=== PATIENT | male | born 1960 | race Caucasian/White ===

== ENCOUNTER → 2016-09-16 | Outpatient (CLI) | payer BC ==
[~2016-09-16] MED LIST: ALBUAER2 INH; CEPH500C PO; CHOL1000 PO; CHOL4POW6 PO; CHOLPOW PO; CLON0.1T12 PO; ETAN50IN3 INJ; HYDC25 PO; HYDR-5688 PO; HYDR50TA3 PO; LISI40TA PO; MELATAB2 PO; MELO15TA10 PO; MOME50SP5; MOME6000; PRLSR20 PO; SPR25 PO; SULF800T23 PO; VNTHFA/IN INH
[2016-09-16 12:28] LABS: BASO % 0.3 %; BASO ABS # 0.03 K/uL (0-0.2); COMPLETE YES; EOS % 0.8 %; HEMATOCRIT 43.2 % (42-52); IG% 0.2 %; LYMPH % 15.3 %; LYMPH ABS # 1.32 K/uL (1.2-3.4); MEAN CELL VOLUME 91.3 fL (80-100); MEAN CORPUSCULAR HEMOGLOBIN 31.5 pg (25-34); MEAN CORPUSCULAR HGB CONC 34.5 g/dl (32-36); MEAN PLATELET VOLUME 11.3 fL (7.4-10.4); MONO % 9.3 %; NEUT % 74.1 %; PLATELET COUNT 224 K/uL (130-400); RED BLOOD COUNT 4.73 M/uL (4.7-6.1); WHITE BLOOD COUNT 8.62 K/uL (4.8-10.8)
[2016-09-16 12:42] LABS: ALT/SGPT 38 U/L (12-78); BLOOD UREA NITROGEN 15 mg/dl (7-18); BUN/CREATININE RATIO 15.5 (10-20); CALCIUM 9.3 mg/dl (8.5-10.1); CARBON DIOXIDE 24 mmol/L (21-32); CHLORIDE 104 mmol/L (98-107); CHOLESTEROL 185 mg/dl (0-200); CREATININE 0.98 mg/dl (0.60-1.40); GLUCOSE 144 mg/dl (70-99); POTASSIUM 4.5 mmol/L (3.5-5.1); SODIUM 138 mmol/L (136-145)
[2016-09-16 12:52] LABS: ALKALINE PHOSPHATASE 70 U/L (45-117); AST/SGOT 14 U/L (15-37); CHOLESTEROL/HDL RATIO 3.6; HDL CHOLESTEROL 51 mg/dl; LDL CHOLESTEROL CALCULATED 102 mg/dl; PROSTATE SPECIFIC ANTIGEN 0.415 ng/ml (0.000-4.000); THYROID STIMULATING HORMONE 0.252 uIu/ml (0.300-4.500); TRIGLYCERIDES 158 mg/dl (0-150); VERY LOW DENSITY LIPOPROT CALC 32 mg/dl
[2016-09-16 13:23] LABS: ESTIMATED AVERAGE GLUCOSE 117 mg/dl; HA1C FLAG Normal (Normal)
== END | disposition home or self-care (01) ==
LOC: C.LABBFT 09:02
PROVIDERS: ATTEND Internal Medicine
DX: R73.01 Impaired fasting glucose (principal); E78.1 Pure hyperglyceridemia; M06.9 Rheumatoid arthritis, unspecified; E55.9 Vitamin D deficiency, unspecified; Z12.5 Encounter for screening for malignant neoplasm of prostate

== ENCOUNTER 2016-10-05 07:22 | Emergency (ER) | payer BC ==
[~2016-10-05] VITALS: Ht 175.3 cm; Wt 128.1 kg
[~2016-10-05 07:22] MED LIST changes: -CEPH500C PO; -CHOLPOW PO; -ETAN50IN3 INJ; -HYDR-5688 PO; -HYDR50TA3 PO; -MOME6000; -SULF800T23 PO; -VNTHFA/IN INH
[2016-10-05 07:24] VITALS: TEMP 36.7; Ht 175.3 cm; Wt 128.1 kg
[2016-10-05] MEDS ORDERED: SODIUM CHLORIDE 0.9% 500ML 500 ML IV STA (07:40)
[2016-10-05] MEDS ORDERED: SODIUM CHLORIDE 0.9% 1000ML 1,000 ML IV STA (07:40)
--- NOTE | 2016-10-05 07:41 | EMERGENCY ROOM VISIT NOTE ---
History Report prepared by Chen: Sandra Liang Under the Supervision of: Dr. Gemma Armstrong M.D. First contact with patient: 07:34 Chief Complaint: INFECTION Stated Complaint: INFECTION History of Present Illness The patient is a 56 year old male who presents to the Emergency Room with complaints of worsening scrotal swelling that began yesterday. The patient states that he was having a bowel movement a few days ago and felt a tearing sensation to the scrotal area. Yesterday, he noticed swelling to the area that has since worsened. He cleaned up the area with baby wipes yesterday but was concerned this morning because he could hardly walk due to the pain. He notes that the swollen area felt very hard. Denies vomiting, diarrhea, or other complaints. He states that he had similar symptoms about 8-10 years ago when he had an abscess. Source of History: patient Onset: yesterday Position: other (scrotum) Quality: other (hard swelling) Timing: worsening Associated Symptoms: No diarrhea, No vomiting Review of Systems See HPI for pertinent positives & negatives. A total of 10 systems reviewed and were otherwise negative. Past Medical & Surgical Medical Problems: (1) HTN (hypertension) (2) Methotrexate adverse reaction (3) Sleep apnea Surgical Problems: (1) History of surgery on arm Family History Diabetes mellitus Hypertension Lung disease Social History Smoking Status: Never Smoker Alcohol Use: none Drug Use: none Marital Status: Housing Status: lives with family Occupation Status: employed Current/Historical Medications Scheduled Albuterol Hfa (Ventolin Hfa), 2-4 PUFFS INH Q6H Cephalexin Monohydrate (Keflex), 500 MG PO QID Cholecalciferol (Vitamin D3), 1,000 INTUNIT PO QAM Cholestyramine (Bulk) (Cholestyramine), 1 PKT PO DAILY Clonidine Hcl (Catapres), 0.1 MG PO BID Etanercept (Enbrel Sureclick), 50 MG INJ WK Hydrochlorothiazide (Hctz), 50 MG PO QAM Lisinopril (Prinivil), 40 MG PO QAM Meloxicam (Mobic), 15 MG PO QAM Omeprazole (Prilosec), 20 MG PO BID Spironolactone (Spironolactone), 25 MG PO QAM Sulfa/Trimethoprim (Bactrim Ds 800MG/160MG), 1 TAB PO BID Scheduled PRN Hydrocodone/Acetaminophen 5MG/325MG ([place] 5MG/325MG), 1 TABLET PO Q6 PRN for Pain Melatonin (Melatonin Maximum Strengt), 5 MG PO HS PRN for Sleep Miscellaneous Medications Mometasone Furoate (Nasal) (Mometasone Furoate) Allergies Coded Allergies: Amlodipine (Verified Allergy, Unknown, UNKNOWN, 10/05/16) Per pt make him feel "like he is floating" and "sick" Methotrexate (Verified Allergy, Unknown, ., 10/05/16) Physical Exam Vital Signs Date Time Temp Pulse Resp B/P Pulse Ox O2 Delivery O2 Flow Rate FiO2 10/05/16 09:25 94 115/80 94 10/05/16 08:47 94 120/69 94 10/05/16 07:24 36.7 114 20 139/80 94 Room Air Physical Exam Vital signs reviewed. General: Well-appearing 56 year old male, obese, in no significant distress. HEENT: No scleral icterus, PERRLA, neck supple. Atraumatic. Cardiovascular: Regular rate and rhythm, no extra sounds. Pulmonary: Clear to auscultation bilaterally, normal work of breathing. Abdomen: Soft, nontender, nondistended, positive bowel sounds. Musculoskeletal: Atraumatic, no peripheral edema. : Liberty sized abscess to the most posterior aspect of the scrotum with active drainage, purulent material, tenderness and induration surrounding the wound. Neurologic: Patient awake alert and oriented x 3 Skin: Warm, dry, no rash Medical Decision & Procedures ER Provider Diagnostic Interpretation: Radiology results as stated below per my review and radiologist interpretation: CT SCAN OF THE ABDOMEN AND PELVIS WITH IV CONTRAST CLINICAL HISTORY: Scrotal abscess. COMPARISON STUDY: Abdominal CT dated 10/31/2015. TECHNIQUE: Following the IV administration of 119 cc of Optiray 320, CT scan of the abdomen and pelvis is performed from the lung bases to the mid thighs. Images are reviewed in the axial, sagittal, and coronal planes. IV contrast was administered without complication. Automated dose control exposure was utilized. CT DOSE: 1704.25 mGy.cm FINDINGS: Lung bases: The heart is mildly enlarged an without pericardial effusion. There is no airspace consolidation or pleural effusion. There are 2 pulmonary nodules at the left lung base measuring up to 4 mm. These are seen on images #35 and #36, and are unchanged from 10/31/2015. Dependent atelectasis is observed. There is a small hiatal hernia. Liver: The contrast-enhanced liver is enlarged, measuring 22.7 cm in length. The liver demonstrates diffusely diminished attenuation consistent with hepatic steatosis. A subcentimeter hypodensity in the left lobe of liver seen on image #65 may represent a cyst but is too small for definitive characterization. There is no intrahepatic biliary ductal dilatation. The hepatic veins and portal veins are patent. Gallbladder: Surgically absent. Spleen: The spleen is enlarged, measuring 15 cm in length. Pancreas: Unremarkable. Adrenal glands: Unremarkable. Kidneys: The contrast enhanced kidneys are normal in size and without hydronephrosis. The kidneys enhance symmetrically. Scattered subcentimeter cortical hypodensities likely represent cysts but are too small for definitive characterization. Abdominal vasculature: The abdominal aorta is normal in course and caliber. Bowel: The small bowel and colon are normal in course and caliber. Submucosal fat deposition is noted throughout the colon. A small duodenal diverticulum is incidentally noted. The appendix is well-visualized and normal. Peritoneum: There is no intraperitoneal free air or abdominal ascites. There is a small fat-containing umbilical hernia. Lymphadenopathy: None. Pelvic viscera: The bladder, prostate, and seminal vesicles are normal as imaged. Calcified phleboliths are noted in the pelvis. Mild scrotal wall thickening and edema is suggested. No subcutaneous emphysema or inflammation is identified in the perineal region. Skeletal structures: No lytic or blastic lesions are seen. There is mild lumbosacral spondylosis. Degenerative change with partial bony fusion is noted in the sacroiliac joints. IMPRESSION: 1. There are no acute infectious or inflammatory findings in the abdomen or pelvis. 2. Mild scrotal wall thickening and edema is suggested. No organized fluid collection is seen to indicate abscess. 3. No subcutaneous emphysema or inflammation is identified in the perineal region. 4. Hepatomegaly and hepatic steatosis. 5. Splenomegaly. 6. Cardiomegaly. 7. Additional findings as above. Electronically signed by: Gordo Cruz M.D. 10/05/2016 8:44 AM Dictated Date/Time: 10/05/2016 8:29 AM Laboratory Results 10/05/16 07:51 Red Blood Count 4.55, Mean Corpuscular Volume 87.3, Mean Corpuscular Hemoglobin 31.2, Mean Corpuscular Hemoglobin Concent 35.8, Mean Platelet Volume 10.2, Neutrophils (%) (Auto) 76.9, Lymphocytes (%) (Auto) 9.4, Monocytes (%) (Auto) 12.2, Eosinophils (%) (Auto) 1.0, Basophils (%) (Auto) 0.2, Neutrophils # (Auto ) 7.85, Lymphocytes # (Auto) 0.96, Monocytes # (Auto) 1.25, Eosinophils # (Auto ) 0.10, Basophils # (Auto) 0.02 10/05/16 07:51 Test 10/05/16 07:51 10/05/16 07:57 White Blood Count 10.21 K/uL (4.8-10.8) Red Blood Count 4.55 M/uL (4.7-6.1) Hemoglobin 14.2 g/dL (14.0-18.0) Hematocrit 39.7 % (42-52) Mean Corpuscular Volume 87.3 fL (80-100) Mean Corpuscular Hemoglobin 31.2 pg (25-34) Mean Corpuscular Hemoglobin Concent 35.8 g/dl (32-36) Platelet Count 152 K/uL (130-400) Mean Platelet Volume 10.2 fL (7.4-10.4) Neutrophils (%) (Auto) 76.9 % Lymphocytes (%) (Auto) 9.4 % Monocytes (%) (Auto) 12.2 % Eosinophils (%) (Auto) 1.0 % Basophils (%) (Auto) 0.2 % Neutrophils # (Auto) 7.85 K/uL (1.4-6.5) Lymphocytes # (Auto) 0.96 K/uL (1.2-3.4) Monocytes # (Auto) 1.25 K/uL (0.11-0.59) Eosinophils # (Auto) 0.10 K/uL (0-0.5) Basophils # (Auto) 0.02 K/uL (0-0.2) RDW Standard Deviation 40.7 fL (36.4-46.3) RDW Coefficient of Variation 12.8 % (11.5-14.5) Immature Granulocyte % (Auto) 0.3 % Immature Granulocyte # (Auto) 0.03 K/uL (0.00-0.02) Est Creatinine Clear Calc Drug Dose 108.9 ml/min Estimated GFR () 98.1 Estimated GFR (Non- 84.6 BUN/Creatinine Ratio 13.3 (10-20) Calcium Level 8.9 mg/dl (8.5-10.1) Total Bilirubin 0.8 mg/dl (0.2-1) Direct Bilirubin 0.1 mg/dl (0-0.2) Aspartate Amino Transf (AST/SGOT) 16 U/L (15-37) Alanine Aminotransferase (ALT/SGPT) 33 U/L (12-78) Alkaline Phosphatase 79 U/L (45-117) Total Protein 7.3 gm/dl (6.4-8.2) Albumin 3.4 gm/dl (3.4-5.0) Bedside Hemoglobin 13.9 g/dl (14.0-18.0) Bedside Hematocrit 41 % (42-52) Bedside Sodium 135 mEq/L (135-144) Bedside Potassium 4.1 mEq/L (3.3-5.0) Bedside Chloride 100 mEq/L (101-112) Bedside Total CO2 21 mEq/l (24-31) Anion Gap 19.0 mmol/L (16-25) Bedside Blood Urea Nitrogen 13 mg/dl (7-18) Bedside Creatinine 0.8 mg/dl (0.6-1.3) Bedside Glucose (other) 154 mg/dl (70-99) Bedside Ionized Calcium (Escobar) 1.09 mmol/l (1.12-1.32) Laboratory results per my review. Medications Administered Medications (Trade) Dose Ordered Sig/Maryam Route Start Time Stop Time Status Last Admin Dose Admin Sodium Chloride 500 ml @ 999 mls/hr Q31M STAT IV 10/05/16 07:40 10/05/16 08:10 DC 10/05/16 07:55 999 MLS/HR Sodium Chloride (Nss 1000ml) 1,000 ml @ 125 mls/hr Q8H STAT IV 10/05/16 07:40 10/05/16 10:48 DC 10/05/16 07:40 125 MLS/HR Ketorolac Tromethamine (Toradol Inj) 30 mg NOW STAT IV 10/05/16 08:37 10/05/16 08:39 DC 10/05/16 08:46 30 MG Trimethoprim/ Sulfamethoxazole (Septra Ds 800/ 160MG Tab) 1 tab NOW STAT PO 10/05/16 08:58 10/05/16 08:59 DC 10/05/16 09:16 1 TAB Cephalexin Monohydrate (Keflex Cap) 500 mg NOW ONCE PO 10/05/16 09:00 10/05/16 09:08 DC 10/05/16 09:17 500 MG ED Course 0736: The patient was evaluated in room A2. A complete history and physical examination was performed. 0740: Ordered NSS 1000 ml @ 125 mls/hr IV, NSS 500 ml @ 999 mls/hr IV. 0837: Ordered Toradol Inj 30 mg IV, [place] 7.5/325 1 tab PO. 0858: Ordered Trimethoprim/Sulfamethoxazole 1 tab PO, Keflex Cap 500 mg PO. 0931: Upon reevaluation, the patient appeared to have improvement of his symptoms. I discussed findings with the patient. He verbalized agreement of the treatment plan. The patient was discharged home. Medical Decision Differential includes scrotal abscess, cellulitis, Светлана's gangrene, folliculitis, yeast dermatitis, perirectal abscess, rectal fissure. This patient was evaluated and appeared to be in no significant distress. Physical examination reveals a small open wound on the posterior aspect of the scrotum with purulent material draining. There is indurated tissue around this area. The patient is obese. A CT scan was performed to rule out a deeper abscess or a Светлана's gangrene. This study was significant only for a cellulitis. I suspect much of the abscess has drained. Patient was placed on Keflex and Bactrim 7 days. He was discharged follow-up with his primary care physician this week. He will return to the ER for worsening of symptoms or any medical concerns. Impression Primary Impression: Cellulitis of scrotum Additional Impression: Abscess of scrotal wall Scribe Attestation The scribe's documentation has been prepared under my direction and personally reviewed by me in its entirety. I confirm that the note above accurately reflects all work, treatment, procedures, and medical decision making performed by me. Departure Information Dispostion Home / Self-Care Prescriptions Hydrocodone/Acetaminophen 5MG/325MG ([place] 5MG/325MG) Tab 1 TABLET PO Q6 Y for Pain, #14 TAB Prov: Gemma Armstrong M.D. 3 Cephalexin Monohydrate (Keflex) 500 Mg Cap 500 MG PO QID, #28 CAP Prov: Gemma Armstrong M.D. 10/05/16 Sulfa/Trimethoprim (Bactrim Ds 800MG/160MG) Tab 1 TAB PO BID, #14 TAB Prov: Gemma Armstrong M.D. 10/05/16 Referrals Ken Briceno M.D. (PCP) Patient Instructions [facility] Additional Instructions Diagnosis: Cellulitis of the scrotum, abscess Bactrim DS one tablet twice daily for 7 days. Keflex 500 mg 4 times daily for 7 days. Follow-up with your primary care physician this week for reevaluation. [place] one to 2 tabs every 6 hours as needed for significant pain. Warm soaks and sitz baths to keep the area clean. Wear a clean pad for drainage. Return to the emergency department for worsening of symptoms or any medical concerns. Problem Qualifiers
[2016-10-05 08:10] LABS: ISTAT CREATININE 0.8 mg/dl (0.6-1.3); ISTAT HEMOGLOBIN 13.9 g/dl (14.0-18.0); ISTAT IONIZED CALCIUM 1.09 mmol/l (1.12-1.32)
[2016-10-05] MEDS ORDERED: VNTHFA/IN INH (08:10)
[2016-10-05] MEDS ORDERED: MOME6000 (08:10)
[2016-10-05] MEDS ORDERED: ETAN50IN3 INJ (08:10)
[2016-10-05] MEDS ORDERED: HYDR50TA3 PO (08:10)
[2016-10-05] MEDS ORDERED: CHOLPOW PO (08:10)
[2016-10-05 08:12] LABS: BASO % 0.2 %; BASO ABS # 0.02 K/uL (0-0.2); COMPLETE YES; HEMATOCRIT 39.7 % (42-52); IG% 0.3 %; LYMPH % 9.4 %; LYMPH ABS # 0.96 K/uL (1.2-3.4); MEAN CELL VOLUME 87.3 fL (80-100); MEAN CORPUSCULAR HEMOGLOBIN 31.2 pg (25-34); MEAN CORPUSCULAR HGB CONC 35.8 g/dl (32-36); MEAN PLATELET VOLUME 10.2 fL (7.4-10.4); MONO % 12.2 %; NEUT % 76.9 %; PLATELET COUNT 152 K/uL (130-400); RED BLOOD COUNT 4.55 M/uL (4.7-6.1); WHITE BLOOD COUNT 10.21 K/uL (4.8-10.8)
[2016-10-05] MEDS ORDERED: OPTIRAY 320 IV PRN (08:15)
[2016-10-05 08:30] LABS: BUN/CREATININE RATIO 13.3 (10-20); CALCIUM 8.9 mg/dl (8.5-10.1); CREATININE 0.98 mg/dl (0.60-1.40)
[2016-10-05] MEDS ORDERED: HYDROCODONE/ACETAMINOPHEN 7.5/325MG TAB PO STA (08:37)
[2016-10-05] MEDS ORDERED: KETOROLAC TROMETHAMINE 30 MG/ML VIAL IV STA (08:37)
--- NOTE | 2016-10-05 08:46 | DIAGNOSTIC IMAGING REPORT ---
CT SCAN OF THE ABDOMEN AND PELVIS WITH IV CONTRAST CLINICAL HISTORY: Scrotal abscess. COMPARISON STUDY: Abdominal CT dated 10/31/2015. TECHNIQUE: Following the IV administration of 119 cc of Optiray 320, CT scan of the abdomen and pelvis is performed from the lung bases to the mid thighs. Images are reviewed in the axial, sagittal, and coronal planes. IV contrast was administered without complication. Automated dose control exposure was utilized. CT DOSE: 1704.25 mGy.cm FINDINGS: Lung bases: The heart is mildly enlarged an without pericardial effusion. There is no airspace consolidation or pleural effusion. There are 2 pulmonary nodules at the left lung base measuring up to 4 mm. These are seen on images #35 and #36, and are unchanged from 10/31/2015. Dependent atelectasis is observed. There is a small hiatal hernia. Liver: The contrast-enhanced liver is enlarged, measuring 22.7 cm in length. The liver demonstrates diffusely diminished attenuation consistent with hepatic steatosis. A subcentimeter hypodensity in the left lobe of liver seen on image #65 may represent a cyst but is too small for definitive characterization. There is no intrahepatic biliary ductal dilatation. The hepatic veins and portal veins are patent. Gallbladder: Surgically absent. Spleen: The spleen is enlarged, measuring 15 cm in length. Pancreas: Unremarkable. Adrenal glands: Unremarkable. Kidneys: The contrast enhanced kidneys are normal in size and without hydronephrosis. The kidneys enhance symmetrically. Scattered subcentimeter cortical hypodensities likely represent cysts but are too small for definitive characterization. Abdominal vasculature: The abdominal aorta is normal in course and caliber. Bowel: The small bowel and colon are normal in course and caliber. Submucosal fat deposition is noted throughout the colon. A small duodenal diverticulum is incidentally noted. The appendix is well-visualized and normal. Peritoneum: There is no intraperitoneal free air or abdominal ascites. There is a small fat-containing umbilical hernia. Lymphadenopathy: None. Pelvic viscera: The bladder, prostate, and seminal vesicles are normal as imaged. Calcified phleboliths are noted in the pelvis. Mild scrotal wall thickening and edema is suggested. No subcutaneous emphysema or inflammation is identified in the perineal region. Skeletal structures: No lytic or blastic lesions are seen. There is mild lumbosacral spondylosis. Degenerative change with partial bony fusion is noted in the sacroiliac joints. IMPRESSION: 1. There are no acute infectious or inflammatory findings in the abdomen or pelvis. 2. Mild scrotal wall thickening and edema is suggested. No organized fluid collection is seen to indicate abscess. 3. No subcutaneous emphysema or inflammation is identified in the perineal region. 4. Hepatomegaly and hepatic steatosis. 5. Splenomegaly. 6. Cardiomegaly. 7. Additional findings as above. Electronically signed by: Gordo Cruz M.D. 10/05/2016 8:44 AM Dictated Date/Time: 10/05/2016 8:29 AM
[2016-10-05] MEDS ORDERED: SULFAMETHOXAZOLE/TRIMETHOPRIM DS 800/160MG TAB PO STA (08:58)
[2016-10-05] MEDS ORDERED: CEPHALEXIN MONOHYDRATE 250 MG CAP PO ONE (09:00)
[2016-10-05] MEDS ORDERED: HYDR-5688 PO (09:07)
[2016-10-05] MEDS ORDERED: SULF800T23 PO (09:07)
[2016-10-05] MEDS ORDERED: CEPH500C PO (09:07)
[2016-10-05 09:25] VITALS: BP 115/80; PULSE 94; O2SAT 94
== END 2016-10-05 09:26 | disposition home or self-care (01) ==
LOC: C.EDB 07:23 → C.EDA 09:26
DX: N49.2 Inflammatory disorders of scrotum (principal); I10 Essential (primary) hypertension; E66.9 Obesity, unspecified; Z79.899 Other long term (current) drug therapy; Z68.41 Body mass index [BMI] 40.0-44.9, adult; Z83.3 Family history of diabetes mellitus; Z82.49 Family history of ischemic heart disease and other diseases of the circulatory system

== ENCOUNTER → 2017-05-29 | Outpatient (CLI) | payer OTHER ==
[~2017-05-29] MED LIST changes: -ALBUAER2 INH; -CHOL4POW6 PO; +CHOLPOW PO; +ETAN50IN3 INJ; -HYDC25 PO; +HYDR50TA3 PO; -MOME50SP5; +MOME6000; +VNTHFA/IN INH
== END | disposition home or self-care (01) ==
LOC: C.LAB 19:01
DX: Z02.83 Encounter for blood-alcohol and blood-drug test (principal)

== ENCOUNTER 2018-10-01 17:51 | Inpatient (IN) ==
[2018-10-01] MEDS ORDERED: MoRPHine SULFATE 10 MG/ML CARP/VIAL IV STA (18:37)
[2018-10-01] MEDS ORDERED: SODIUM CHLORIDE 0.9% 1000ML 1,000 ML IV ONE (18:37)
[2018-10-01] MEDS ORDERED: ONDANSETRON INJ 2 MG/ML 2 ML VIAL IV STA (18:37)
--- NOTE | 2018-10-01 19:13 | Emergency Department Note ---
ED Provider Note CHIEF COMPLAINT: Infection of the scrotum HISTORY OF PRESENT ILLNESS: This 58-year-old male patient presents to the emergency department, ambulatory, 1 day after they noticed a hard, red, tender area in the scrotum and perineum. It is slowly getting larger, more painful and tender. The patient does report a history of swelling and abscess in this area as well. He states he has had it incised and drained in the past. The patient does report subjective fever, chills, and loss of appetite. There has been no drainage from the area. There was no injury to the area preceding the infection, but the patient states he had an MRI with contrast of his arm and developed diarrhea afterward, and suspects the diarrhea may have caused the abscess. They rate the pain as sharp and 9/10. Tetanus shot is up to date. They have tried no compresses, soaks, or medication. The patient is not diabetic. REVIEW OF SYSTEMS: A 10 system review of systems was performed with positives and pertinent negatives listed in the history of present illness. All other systems were reviewed and are negative. ALLERGIES: Amlodipine, methotrexate PHYSICAL EXAM: Vital Signs: Reviewed Nurse's notes, vital signs stable. GENERAL : This is a 58-year-old obese white male, no acute distress, non toxic in appearance, well-developed well-nourished. SKIN: There is an erythematous indurated area in the perineum and extending into the scrotum which measures about 4 cm in diameter. It is fluctuant but there is no pointing or drainage. There is a zone of inflammation around it but no lymphangitis. Capillary refill less than 2 seconds. MUSCULOSKELETAL: There is no limitation of the range of motion of the lower extremities. HEART: Regular rate and rhythm without murmurs, gallops, rubs. LUNGS: CTA bilaterally without wheezes, rhonchi , rales. ABDOMEN: Positive bowel sounds in all 4 quadrants. Normal tympanic percussion. Soft, nontender to palpation. No masses, guarding, or tenderness noted. RADIOLOGY: CT SCAN OF THE PELVIS WITH IV CONTRAST CLINICAL HISTORY: Scrotal/perineal edema and cellulitis. COMPARISON STUDY: Pelvic CT dated 10/05/2016. TECHNIQUE: Following the IV administration of 95 cc of Optiray 220, CT scan of the pelvis is performed from the pelvic inlet to the proximal femora. Images are reviewed in the axial, sagittal, and coronal planes. IV contrast was administered without complication. A dose lowering technique was utilized adhering to the principles of ALARA. CT DOSE: 1135.64 mGycm FINDINGS: The bladder, prostate, and seminal vesicles are normal in appearance. The testes are normal as imaged. There is scrotal wall thickening and edema, greatest posteriorly on the left. There is a thick walled and peripherally enhancing fluid collection identified within the posterior wall of the scrotum end adjacent perineal soft tissues, best seen on image #294. This measures 4.6 x 4.4 x 1.9 cm as seen on axial image #290. The appearance is typical for abscess. The visualized loops of small bowel and colon are normal in caliber. A normal appendix is identified. The perianal soft tissues are normal as imaged. There is no free fluid in the pelvis. No pelvic sidewall or inguinal adenopathy is seen. The bony pelvis appears intact. No lytic or blastic lesion is seen. Degenerative change and partial fusion is noted in the sacroiliac joints. The regional musculature is normal and symmetric. A surgical clip versus metallic foreign body is present within the right anterior upper thigh on image #296. IMPRESSION: There is evidence of cellulitis and abscess involving the posterior scrotal wall and adjacent perineum as detailed above. Electronically signed by: Gordo Cruz M.D. 10/01/2018 8:46 PM EMERGENCY DEPARTMENT COURSE: I examined the patient. The abscess is located within the scrotum and extends into the perineum. There is no pointing or drainage at this time. Because of the location of the abscess and concern for Светлана's gangrene, we did elect to perform CT imaging and labs. Labs to show a leukocytosis of 13,000. No significant anemia or thrombocytopenia. The patient was hypokalemic at 2.8. Otherwise, electrolytes, renal and hepatic function without significant abnormalities. Did order a magnesium with note of hypokalemia. CT scan performed reviewed by myself and radiologist as above. There was evidence of a 4.6 x 4.1 x 1.9 cm abscess located within the scrotum and extending to the perineum. Initiated IV Clindamycin and Zosyn. The patient' s pain was managed in the ED with morphine. Because of the location of the abscess, the patient subjective fever and chills , as well as leukocytosis, I did contact the general surgeon. I spoke with Dr. Vargas, who recommends the patient be evaluated by urology, as the majority of the abscess is within the scrotum. I spoke with Dr. Hull from urology. He did agree to evaluate the patient and drain the abscess, however, requests that the patient be admitted for antibiotics overnight with some time in order to see if the abscess develops a head or starts to drain, with either bedside I&D vs. surgical I&D tomorrow afternoon. I discussed the case and recommendation by urology for admission with Dr. Edge. He did agree to see and evaluate the patient. I attest that I have personally reviewed the patient's current medication list. Patient was found to have normal blood pressure on screening and does not require follow-up. Differential diagnosis includes cellulitis, Светлана's gangrene, abscess, DVT, superficial thrombus, septic joint, necrotizing fasciitis, burn, dermatitis, impetigo, erythema multiforme, bite, osteomyelitis, Russo-Gordy Syndrome, gangrene, malignancy, and others DIAGNOSIS: scrotal abscess The chart was completed utilizing [employer] Speech voice recognition software. Grammatical errors, random word insertions, pronoun errors, and incomplete sentences are an occasional consequence of this system due to software limitations, ambient noise, and hardware issues. Any formal questions or concerns about the content, text, or information contained within the body of this dictation should be directly addressed to the provider for clarification. Impression & Plan Abscess of scrotum, Acute hypokalemia Past Med/Surg History Medical History GERD (gastroesophageal reflux disease) Rheumatoid arthritis Psoriatic arthritis Hyperlipidemia HTN (hypertension) (Chronic) Sleep apnea (Chronic) Social History Feels Safe at Home: Yes Smoking Status: Never smoker Results & Data Vital Signs Vital Signs - 24 hr 10/01/18 18:21 10/01/18 19:05 10/01/18 20:44 Temperature 37.3 C Temperature Source Oral Sepsis Recent Fever Within 48 Hours No Sepsis New/Unexplained Change in Mental Status No Sepsis Action Taken by Nursing No Action Required Pulse Rate 108 H Pulse Rate [Finger] 94 H Respiratory Rate 20 18 Respiratory Effort / Characteristics Non-Labored Spontaneous Respiratory Depth Normal Blood Pressure 173/99 H Blood Pressure [Right Arm] 118/76 Blood Pressure Mean 123 Blood Pressure Mean [Right Arm] 90 Pulse Oximetry 95 94 Oxygen Delivery Method Room Air Room Air Room Air Laboratory Data Result diagrams: 10/01/18 19:05 10/01/18 19:05 Lab Results 10/01/18 10/01/18 10/01/18 Range/Units 19:05 19:05 19:05 WBC 13.53 H (4.8-10.8) K/uL RBC 5.08 (4.7-6.1) M/uL Hgb 15.6 (14.0-18.0) g/dL POC Hgb (14.0-18.0) g/dl Hct 44.4 (42-52) % POC Hct (42-52) % MCV 87.4 (80-100) fL MCH 30.7 (25-34) pg MCHC 35.1 (32-36) g/dL RDW Std Deviation 44.6 (36.4-46.3) fL RDW Coeff of Elvia 13.9 (11.5-14.5) % Plt Count 168 (130-400) K/uL MPV 10.7 H (7.4-10.4) fL Immature Gran % (Auto) 0.1 % Neut % (Auto) 73.9 % Lymph % (Auto) 11.2 % [place] % (Auto) 13.3 % Eos % (Auto) 1.2 % Baso % (Auto) 0.3 % Immature Gran # (Auto) 0.02 (0.00-0.02) K/uL Neut # (Auto) 9.99 H (1.4-6.5) K/uL Lymph # (Auto) 1.52 (1.2-3.4) K/uL [place] # (Auto) 1.80 H (0.11-0.59) K/uL Eos # (Auto) 0.16 (0-0.5) K/uL Baso # (Auto) 0.04 (0-0.2) K/uL PT 10.8 (9.0-12.0) Seconds INR 1.1 (0.9-1.1) APTT 26.1 (21.0-31.0) Seconds PTT Ratio 1.0 POC Sodium (135-144) mEq/L Sodium 135 L (136-145) mmol/L POC Potassium (3.3-5.0) mEq/L Potassium 2.8 L (3.5-5.1) mmol/L POC Chloride (101-112) mEq/L Chloride 97 L (98-107) mmol/L Carbon Dioxide 31 (21-32) mmol/L POC Total CO2 (24-31) mEq/l Anion Gap 7.0 (3-11) POC Anion Gap (16-25) mmol/L POC BUN (7-18) mg/dl BUN 18 (7-18) mg/dl Creatinine 0.96 (0.6-1.4) mg/dl POC Creatinine (0.6-1.3) mg/dl Est Cr Clr Drug Dosing 104.3 ml/min Est GFR ( Amer) 99.2 Est GFR (Non-Af Amer) 85.6 BUN/Creatinine Ratio 18.5 (10-20) Glucose 106 H (70-99) mg/dl POC Glucose (other) (70-99) mg/dl Lactate (0.4-2.0) mmol/L Calcium 8.8 (8.5-10.1) mg/dl POC Ioniz Calcium Escobar (1.12-1.32) mmol/l Total Bilirubin 0.7 (0.2-1) mg/dl AST 14 L (15-37) U/L ALT 30 (12-78) U/L Alkaline Phosphatase 82 (45-117) U/L Total Protein 8.3 H (6.4-8.2) gm/dl Albumin 3.7 (3.4-5.0) gm/dl Globulin 4.6 H (2.5-4.0) gm/dl Albumin/Globulin Ratio 0.8 L (0.9-2) Urine Color Urine Appearance (Clear) Urine pH (4.5-7.5) Ur Specific [place] (1.000-1.030) Urine Protein (Negative) Urine Glucose (UA) (Negative) Urine Ketones (Negative) Urine Blood (Negative) Urine Nitrite (Negative) Urine Bilirubin (Negative) Urine Urobilinogen (Negative) Ur Leukocyte Esterase (Negative) 10/01/18 10/01/18 10/01/18 Range/Units 19:08 19:16 20:30 WBC (4.8-10.8) K/uL RBC (4.7-6.1) M/uL Hgb (14.0-18.0) g/dL POC Hgb 16.3 (14.0-18.0) g/dl Hct (42-52) % POC Hct 48 (42-52) % MCV (80-100) fL MCH (25-34) pg MCHC (32-36) g/dL RDW Std Deviation (36.4-46.3) fL RDW Coeff of Elvia (11.5-14.5) % Plt Count (130-400) K/uL MPV (7.4-10.4) fL Immature Gran % (Auto) % Neut % (Auto) % Lymph % (Auto) % [place] % (Auto) % Eos % (Auto) % Baso % (Auto) % Immature Gran # (Auto) (0.00-0.02) K/uL Neut # (Auto) (1.4-6.5) K/uL Lymph # (Auto) (1.2-3.4) K/uL [place] # (Auto) (0.11-0.59) K/uL Eos # (Auto) (0-0.5) K/uL Baso # (Auto) (0-0.2) K/uL PT (9.0-12.0) Seconds INR (0.9-1.1) APTT (21.0-31.0) Seconds PTT Ratio POC Sodium 138 (135-144) mEq/L Sodium (136-145) mmol/L POC Potassium 2.8 L (3.3-5.0) mEq/L Potassium (3.5-5.1) mmol/L POC Chloride 95 L (101-112) mEq/L Chloride (98-107) mmol/L Carbon Dioxide (21-32) mmol/L POC Total CO2 31 (24-31) mEq/l Anion Gap (3-11) POC Anion Gap 16.0 (16-25) mmol/L POC BUN 16 (7-18) mg/dl BUN (7-18) mg/dl Creatinine (0.6-1.4) mg/dl POC Creatinine 0.9 (0.6-1.3) mg/dl Est Cr Clr Drug Dosing ml/min Est GFR ( Amer) Est GFR (Non-Af Amer) BUN/Creatinine Ratio (10-20) Glucose (70-99) mg/dl POC Glucose (other) 108 H (70-99) mg/dl Lactate 1.7 (0.4-2.0) mmol/L Calcium (8.5-10.1) mg/dl POC Ioniz Calcium [place] 1.03 L (1.12-1.32) mmol/l Total Bilirubin (0.2-1) mg/dl AST (15-37) U/L ALT (12-78) U/L Alkaline Phosphatase (45-117) U/L Total Protein (6.4-8.2) gm/dl Albumin (3.4-5.0) gm/dl Globulin (2.5-4.0) gm/dl Albumin/Globulin Ratio (0.9-2) Urine Color Yellow Urine Appearance Clear (Clear) Urine pH 5.0 (4.5-7.5) Ur Specific [place] > 1.045 H (1.000-1.030) Urine Protein Negative (Negative) Urine Glucose (UA) Negative (Negative) Urine Ketones Negative (Negative) Urine Blood Negative (Negative) Urine Nitrite Negative (Negative) Urine Bilirubin Negative (Negative) Urine Urobilinogen Negative (Negative) Ur Leukocyte Esterase Negative (Negative) Administered Medications Piperacillin Sod/Tazobactam Sod (Zosyn) 4.5 gm in 120 mls @ 240 mls/hr IV NOW ONE Stop: 10/01/18 21:27 Last Admin: 10/01/18 21:10 Dose: 240 mls/hr Ioversol (Optiray 320 100ml) 94 ml IV ONCE PRN PRN Reason: Interaction Checking Stop: 10/05/18 20:13 Last Admin: 10/01/18 20:15 Dose: 94 ml Discontinued Medications Sodium Chloride (Nss 1000ml) 1,000 mls @ 999 mls/hr IV .Q1H1M ONE Stop: 10/01/18 19:37 Last Infusion: 10/01/18 20:30 Dose: 0 mls/hr Admin: 10/01/18 19:21 Dose: 999 mls/hr Morphine Sulfate (Morphine Sulfate) 8 mg IV NOW STA Stop: 10/01/18 18:38 Last Admin: 10/01/18 19:22 Dose: 8 mg Morphine Sulfate (Morphine Sulfate) 4 mg IV NOW STA Stop: 10/01/18 20:59 Last Admin: 10/01/18 21:10 Dose: 4 mg Ondansetron HCl (Zofran) 4 mg IV NOW STA Stop: 10/01/18 18:38 Last Admin: 10/01/18 19:21 Dose: 4 mg Discharge Plan Visit Data Chief Complaint: Referred by Doctor Stated Complaint: BOIL ON BUTTOX ED Provider: Gustavo Casillas ED Midlevel Provider: Wendy Victoria Discharge Problem: Abscess of scrotum, Acute hypokalemia Patient Disposition: Admitted As Inpatient Condition: Good Forms Stand Alone Forms: [email or web address] Prescriptions Prescriptions: No Action Lisinopril (Prinivil) 40 MG tablet 40 mg PO QAM Qty: 0 RF: 0 OMEPRAZOLE (PRILOSEC) 20 MG CONTR REL CAP 20 mg PO BID Qty: 0 RF: 0 CHOLECALCIFEROL (VITAMIN D3) 1,000 UNIT tablet 1,000 intunit PO QAM Qty: 0 RF: 0 MELATONIN (MELATONIN MAXIMUM STRENGT) 5 MG tablet 5 mg PO HS PRN (Reason: Sleep) Qty: 0 RF: 0 CLONIDINE HCL (CATAPRES) 0.1 MG tablet 0.1 mg PO BID 0 Days Qty: 0 RF: 3 Spironolactone 25 MG tablet 25 mg PO QAM Qty: 0 RF: 0 MELOXICAM (MOBIC) 15 MG tablet 15 mg PO QAM Qty: 0 RF: 0 ALBUTEROL HFA (VENTOLIN HFA) 200 PUFFS/18,000 MCG AEROSOL,SOLN 2 - 4 puff Inhalation Q6H Qty: 1 RF: 0 CHOLESTYRAMINE (BULK) (CHOLESTYRAMINE) 1 POW POW 1 pkg PO DAILY Qty: 0 RF: 0 ETANERCEPT (ENBREL SURECLICK) 50 MG/ML INJECTION 50 mg INJ WK Qty: 0 RF: 0 HYDROCHLOROTHIAZIDE (HCTZ) 50 MG tablet 50 mg PO QAM Qty: 0 RF: 0 Mometasone Furoate (Nasal) (Mometasone Furoate) 50 MCG/ACT SPR Qty: 0 RF: 0 Referrals Referrals: Ken Briceno III, MD [Primary Care Provider] -
[2018-10-01 19:18] LABS: Basophils # (auto) 0.04 K/uL (0-0.2); Basophils % (auto) 0.3 %; Eosinophils # (auto) 0.16 K/uL (0-0.5); Eosinophils % (auto) 1.2 %; Hematocrit (blood only) 44.4 % (42-52); Hemoglobin 15.6 g/dL (14.0-18.0); Immature Granulocytes # (auto) 0.02 K/uL (0.00-0.02); Immature Granulocytes % (auto) 0.1 %; Lymphocytes # (auto) 1.52 K/uL (1.2-3.4); Lymphocytes % (auto) 11.2 %; Mean Corpuscular Hgb Conc 35.1 g/dL (32-36); Mean Corpuscular Volume 87.4 fL (80-100); Mean Platelet Volume 10.7 fL (7.4-10.4); Monocytes % (auto) 13.3 %; Neutrophils # (auto) 9.99 K/uL (1.4-6.5); Neutrophils % (auto) 73.9 %; Platelet Count 168 K/uL (130-400); RDW Coefficient of Variation 13.9 % (11.5-14.5); RDW Standard Deviation 44.6 fL (36.4-46.3); Red Blood Count 5.08 M/uL (4.7-6.1); White Blood Count 13.53 K/uL (4.8-10.8)
[2018-10-01 19:24] LABS: iSTAT Creatinine 0.9 mg/dl (0.6-1.3); iSTAT Hemoglobin 16.3 g/dl (14.0-18.0); iSTAT Ionized Calcium 1.03 mmol/l (1.12-1.32); iSTAT Potassium 2.8 mEq/L (3.3-5.0)
[2018-10-01 19:38] LABS: Albumin Level 3.7 gm/dl (3.4-5.0); BUN Creatinine Ratio 18.5 (10-20); Calcium 8.8 mg/dl (8.5-10.1); Creatinine Clr Calc Pharmacy 104.3 ml/min; Est GFR (African American) 99.2; Est GFR (Non-African American) 85.6; Potassium 2.8 mmol/L (3.5-5.1)
[2018-10-01 19:40] LABS: Albumin Globulin Ratio 0.8 (0.9-2); Bilirubin,Total 0.7 mg/dl (0.2-1); Globulin 4.6 gm/dl (2.5-4.0); Total Protein 8.3 gm/dl (6.4-8.2)
[2018-10-01 19:43] LABS: INR 1.1 (0.9-1.1); Partial Thromboplastin Time 26.1 Seconds (21.0-31.0); Prothrombin Time 10.8 Seconds (9.0-12.0)
[2018-10-01] MEDS ORDERED: IOVERSOL 100ml IV PRN (20:14)
[2018-10-01 20:40] LABS: Appearance Urine Clear (Clear); Bilirubin Urine Negative (Negative); Blood Urine Negative (Negative); Color Urine Yellow; Glucose Urine UA Negative (Negative); Ketones Urine Negative (Negative); Leukocyte Esterase Urine Negative (Negative); Nitrite Urine Negative (Negative); Protein Urine Negative (Negative); Specific Gravity Urine > 1.045 (1.000-1.030); Urobilinogen Urine Negative (Negative)
--- NOTE | 2018-10-01 20:48 | CT Scan Report ---
CT SCAN OF THE PELVIS WITH IV CONTRAST CLINICAL HISTORY: Scrotal/perineal edema and cellulitis. COMPARISON STUDY: Pelvic CT dated 10/05/2016. TECHNIQUE: Following the IV administration of 95 cc of Optiray 220, CT scan of the pelvis is perform ed from the pelvic inlet to the proximal femora. Images are reviewed in the axial, sagittal, and prema nal planes. IV contrast was administered without complication. A dose lowering technique was utilize d adhering to the principles of ALARA. CT DOSE: 1135.64 mGycm FINDINGS: The bladder, prostate, and seminal vesicles are normal in appearance. The testes are normal as imaged . There is scrotal wall thickening and edema, greatest posteriorly on the left. There is a thick wall ed and peripherally enhancing fluid collection identified within the posterior wall of the scrotum en d adjacent perineal soft tissues, best seen on image #294. This measures 4.6 x 4.4 x 1.9 cm as seen o n axial image #290. The appearance is typical for abscess. The visualized loops of small bowel and colon are normal in caliber. A normal appendix is identified. The perianal soft tissues are normal as imaged. There is no free fluid in the pelvis. No pelvic side wall or inguinal adenopathy is seen. The bony pelvis appears intact. No lytic or blastic lesion is seen. Degenerative change and partial f usion is noted in the sacroiliac joints. The regional musculature is normal and symmetric. A surgical clip versus metallic foreign body is present within the right anterior upper thigh on image #296. IMPRESSION: There is evidence of cellulitis and abscess involving the posterior scrotal wall and adj acent perineum as detailed above. Electronically signed by: Gordo Cruz M.D. 10/01/2018 8:46 PM
[2018-10-01] MEDS ORDERED: PIPERACILLIN/TAZOBACTAM 4.5 GM/120 ML BAG IV ONE (20:58)
[2018-10-01] MEDS ORDERED: PIPERACILL/TAZOBAC CONSULT ACTIVE PRN ×2 (20:58→22:56)
[2018-10-01] MEDS ORDERED: MoRPHine SULFATE 4 MG/ML 1 ML CARP\\VIAL IV STA (20:58)
[2018-10-01] MEDS ORDERED: CLINDAMYCIN 600 MG/54 ML BAG IV ONE (20:58)
[2018-10-01] MEDS ORDERED: MoRPHine SULFATE 4 MG/ML 1 ML CARP\\VIAL IV PRN (21:37)
[2018-10-01 21:47] LABS: Magnesium 1.7 mg/dl (1.8-2.4)
--- NOTE | 2018-10-01 22:18 | History & Physical Report ---
Date of Service October 01, 2018 Assessment & Plan (1) Abscess of scrotum: 58 y/o M Hx HTN, HLD, LINO, GERD, PUD, RA, history of cellulitis of groin/ scrotum. Presenting with scrotal and groin pain. Has had subjective fevers at home. The pt states that he develops this approximately once a year and has required surgical drainage of a scrotal abscess in the past. Initial labs are notable for leukocytosis and hypokalemia. A CT pelvis confirms cellulitis and abscess involving the posterior scrotal wall and adjacent perineum. 1) Cellulitis and abscess of scrotum. Admitted by [facility] urology. Likely to undergo drainage AM. Due to the location of the abscess and adjacent cellulitis, we have started the pt on Zosyn/Clinda. 2) Hypokalemia - will replace and Mg provided as well - trend BMP AM 3) HTN - Lisinopril and Aldactone held for AM procedure - cont Clonidine BID 4) GERD/PUD - cont PPi 5) RA - currently taking Orencia - f/u as outpt 6) LINO - CPAP provided Full code - SCDs pending AM urology eval Total time for this admit including review of labs, meds, imaging, records - discussion with pt and ER attending - 36 min History of Present Illness Chief Complaint: pain in groin Primary Care Provider: Ken Briceno MD 58 y/o M Hx HTN, HLD, LINO, GERD, PUD, RA, history of cellulitis of groin/ scrotum. Presenting with scrotal and groin pain. Has had subjective fevers at home. The pt states that he develops this approximately once a year and has required surgical drainage of a scrotal abscess in the past. Initial labs are notable for leukocytosis and hypokalemia. A CT pelvis confirms cellulitis and abscess involving the posterior scrotal wall and adjacent perineum. PMH: 1) HTN 2) HLD 3) Obese 4) RA 5) GERD 6) PUD Surgical: I&D if scrotal abscess Social: Retired from [employer], no smoking history, drinks rarely. Family: Both parents owing to "heart problems" Allergies Allergy/AdvReac Type Severity Reaction Status Date / Time amlodipine Allergy Unknown UNKNOWN Verified 10/05/16 08:07 methotrexate Allergy Unknown . Verified 10/05/16 08:07 Home Medications Home Medications Medication Instructions Recorded Confirmed Type OMEPRAZOLE (PRILOSEC) 20 mg PO BID #0 11/26/10 10/01/18 History CHOLECALCIFEROL (VITAMIN D3) 1,000 intunit PO QAM #0 01/27/15 10/01/18 History MELATONIN (MELATONIN MAXIMUM 5 mg PO HS PRN #0 01/27/15 10/01/18 History STRENGT) CLONIDINE HCL (CATAPRES) 0.1 mg PO BID 0 Days #0 tab 05/06/15 10/01/18 History Spironolactone 25 mg PO QAM #0 08/04/15 10/01/18 History MELOXICAM (MOBIC) 15 mg PO QAM #0 tab 10/12/15 10/01/18 History ALBUTEROL HFA (VENTOLIN HFA) 2 - 4 puff INHALATION Q6H #1 10/05/16 10/01/18 History inhaler CHOLESTYRAMINE (BULK) 1 pkg PO DAILY #0 10/05/16 10/01/18 History (CHOLESTYRAMINE) HYDROCHLOROTHIAZIDE (HCTZ) 50 mg PO QAM #0 tab 10/05/16 10/01/18 History lisinopril 40 mg PO DAILY 10/01/18 10/01/18 History Past Med/Surg History Medical History GERD (gastroesophageal reflux disease) Rheumatoid arthritis Psoriatic arthritis Hyperlipidemia HTN (hypertension) (Chronic) Sleep apnea (Chronic) Social History Feels Safe at Home: Yes Smoking Status: Never smoker Review of Systems Gen: Denies fatigue, malaise, weight loss/gain - describes chills/hot flashes - subjective temp ENT: Denies congestion, throat pain, hearing loss Eyes: Denies acute visual changes CV: Denies CP, palpitations Pulmonary: Denies SOB, cough, wheezing GI: Denies N/V, diarrhea, constipation : Scrotal pain as above Neuro: Denies acute or unilateral weakness, acute gait impairment, headache or acute visual changes Musculoskeletal: Denies joint pain, inflammation Endocrine: Denies polydipsia, polyuria Skin: Denies acute rashes or ulcers Physical Exam 2 Vital Signs (Past 24 Hours): Last Vital Signs Temp 37.3 C 10/01/18 18:21 Pulse 94 H 10/01/18 20:44 Resp 18 10/01/18 20:44 BP 118/76 10/01/18 20:44 Pulse Ox 94 10/01/18 20:44 Physical Exam: General: AAO x 3, no distress ENT: No erythema or exudates, no thrush Eyes: ANA, EOMI Head and neck: Normocephalic, atraumatic, No JVD, neck is supple. Chest/heart: Nontender, S1,2, RRR, no murmurs, no gallops Lungs: CTAB, no wheezing or crackles Abdomen: Nontender, nondistended, BS+ : Scrotum appears generally inflamed without discretely affected area Neuro: AAO x 3, speech is clear, no unilateral weakness or loss of sensation, coordination intact Musculoskeletal: No joint inflammation, muscle tenderness, FROM Skin: No acute rashes or ulcers Extremities: No clubbing, cyanosis, edema Results & Data Diagnostic Findings CT pelvis: Cellulitis and abscess involving the posterior scrotal wall and adjacent perineum.
[2018-10-01] MEDS ORDERED: ONDANSETRON INJ 2 MG/ML 2 ML VIAL IV PRN (22:56)
[2018-10-01] MEDS ORDERED: MAGNESIUM HYDROXIDE SUSP 30 ML UDC PO PRN (22:56)
[2018-10-01] MEDS ORDERED: ACETAMINOPHEN 325 MG TAB PO PRN (22:56)
[2018-10-01] MEDS ORDERED: POLYETHYLENE (MIRALAX) 17 GM PACK PO PRN (22:56)
[2018-10-01] MEDS ORDERED: ALUMINUM/MAGNESIUM SUSP 30 ML UDC PO PRN (22:56)
[2018-10-01] MEDS ORDERED: MAGNESIUM SULFATE / D5W 1 GM/100 ML BAG IV ONE (22:56)
[2018-10-01] MEDS ORDERED: ALBUTEROL HFA INHALER 8.5 GM INH PRN (22:56)
[2018-10-01] MEDS ORDERED: NON-FORMULARY MEDICATION (Melatonin (Melatonin Maximum Strengt) 5 MG) PO PRN (22:56)
[2018-10-01] MEDS ORDERED: ZOLPIDEM TARTRATE 5 MG TAB PO PRN (22:56)
[2018-10-01] MEDS: D5NSS + 20MEQ KCL 20 MEQ/1,000 ML BAG IV SCH (23:56)
[2018-10-02] MEDS: POTASSIUM CHLORIDE / WTR 10 MEQ/100 ML PLCT IV SCH ×6 (00:01→14:11)
[2018-10-02] MEDS: MoRPHine SULFATE 4 MG/ML 1 ML CARP\\VIAL IV PRN ×2 (01:13→05:13)
[2018-10-02] MEDS: PIPERACILLIN/TAZOBACTAM 4.5 GM/120 ML BAG IV SCH ×3 (01:55→17:37)
[2018-10-02] MEDS: CLINDAMYCIN 600 MG in DEXTROSE 5% 50 ML IV SCH ×3 (06:16→22:23)
[2018-10-02 07:23] LABS: BUN Creatinine Ratio 13.5 (10-20); Calcium 7.5 mg/dl (8.5-10.1); Creatinine Clr Calc Pharmacy 127.4 ml/min; Est GFR (African American) 113.7; Est GFR (Non-African American) 98.1; Magnesium 2.1 mg/dl (1.8-2.4)
--- NOTE | 2018-10-02 08:24 | Urology Consultation ---
Date of Consultation October 02, 2018 Assessment & Plan (1) Abscess of scrotum: 58yo M posterior scrotal wall abscess, with surrounding cellulitis. +/- extension to perineum. Mild leukocytosis, pt nontoxic appearing. VSS stable Options discussed with patient including observation with IV abx, bedside I&D vs scrotal I&D in operating room later today. Pt would like to move forward with bedside procedure. Scrotal abscess I&D performed at the bedside by Dr. Hull this AM, approx 0930AM. Pt premedicated with PO ativan and IV dilaudid. Please see Dr. Hull procedure notes for details. Patient tolerated procedure well. Cultures obtained and wound packed with 1/2 inch iodoform gauze. Okay to change topical dressing as needed for saturation, expect him to continue to drain moderate amount of bloody/serosangous fluid. Plan to change iodoform packing tomorrow by our service. Continue clindamycin and zosyn while we await culture results. Thank you for the consultation, we will continue to follow with primary service. History of Present Illness Reason for Consultation: scrotal cellulitis, abscess Requesting Physician: Dr. Gordon Attending Physician: Manuelito Gordon History of Present Illness 58yo M with PMHx HTN, HLD, RA, GERD presented to [facility] ED following 2day history of increased posterior scrotal pain. Hx similar event with scrotal abscess requiring I&D 1 year prior. Pt states he had been doing fine up until Monday. CT pelvis confirms cellulitis and abscess involving the posterior scrotal wall and adjacent perineum. - Pt reports feeling hot and cold prior to arrival, afebrile during admission. Placed on clindamycin and zosyn. Pain controlled with IV medication. Does not follow with urology service. PSA and JAIRON performed by PCP per patient report, stable. Reports some difficulty emptying bladder at times Denies hematuria or dysuria. Denies urg/frequency. Allergies Allergy/AdvReac Type Severity Reaction Status Date / Time amlodipine Allergy Unknown UNKNOWN Verified 10/05/16 08:07 methotrexate Allergy Unknown . Verified 10/05/16 08:07 Home Medications Home Medications Medication Instructions Recorded Confirmed Type abatacept [Orencia] 125 mg SUBCUT WK 10/01/18 10/01/18 History albuterol sulfate [Ventolin HFA] 2 puff INHALATION Q4H PRN 10/01/18 10/01/18 History cholecalciferol (vitamin D3) 1,000 unit PO DAILY 10/01/18 10/01/18 History cholestyramine (with sugar) 1 packet PO DAILY 10/01/18 10/01/18 History clonidine HCl 0.1 mg PO BID 10/01/18 10/01/18 History fluticasone-vilanterol [Breo 1 puff INHALATION DAILY 10/01/18 10/01/18 History Ellipta] hydrochlorothiazide 50 mg PO DAILY 10/01/18 10/01/18 History hydrocodone-acetaminophen 1 tab PO Q4H PRN 10/01/18 10/01/18 History leflunomide 20 mg PO DAILY 10/01/18 10/01/18 History lisinopril 40 mg PO DAILY 10/01/18 10/01/18 History melatonin 5 mg PO HS PRN 10/01/18 10/01/18 History meloxicam 15 mg PO DAILY 10/01/18 10/01/18 History nabumetone 500 mg PO BID 10/01/18 10/01/18 History omeprazole 20 mg PO BID 10/01/18 10/01/18 History spironolactone 25 mg PO DAILY 10/01/18 10/01/18 History Patient History Medical History Abscess of scrotum (Acute) Acute hypokalemia (Acute) GERD (gastroesophageal reflux disease) Rheumatoid arthritis Psoriatic arthritis Hyperlipidemia HTN (hypertension) (Chronic) Sleep apnea (Chronic) Social History Current Living Situation: Family and Other Current Living Situation Comment: Dogs/Daughter and grandchildren Other Information That Helps Us Care for You: No Feels Safe at Home: Yes Safety Concerns: Feels Safe At This Time Smoking Status: Never smoker Do You Dip or Chew Tobacco: No Second Hand Exposure: No Hx Alcohol Use: Yes Alcohol type: beer Alcohol Intake Frequency: other Hx Substance Use: No Beliefs That Will Affect Care: None Preferred Language: E[place] Communication Ability: Effective Electrical Supervisor Required: No Review of Systems Constitutional: no fever, no chills and no body aches Eyes: no problem reported Ear, Nose, Mouth, Throat: no ear pain Respiratory: no cough and no dyspnea Cardiovascular: no chest pain Gastrointestinal: no abdominal pain, no nausea and no vomiting Genitourinary (Male): + urinary frequency and + urinary hesitancy; no dysuria, no hematuria and no flank pain Musculoskeletal: no back pain Integumentary: no rash and no lesions Neurologic: no numbness and no paresthesia Psychiatric: no behavioral changes and no hopelessness Endocrine: no fatigue and no polydipsia Hematologic / Lymphatic: no easy bleeding Allergy / Immunological: no problem reported Physical Exam 2 Vital Signs (Past 24 Hours): Last Vital Signs Temp 36.7 C 10/02/18 07:40 Pulse 86 10/02/18 07:40 Resp 14 10/02/18 07:40 BP 133/77 10/02/18 07:40 Pulse Ox 93 10/02/18 07:40 Constitutional: + overweight; no acute distress Eyes: no nystagmus ENMT: Ears: no hearing impairment Neck: trachea midline Respiratory: no respiratory distress and does not use accessory muscles Cardiovascular: Vessels: no JVD Gastrointestinal (Abdomen): Inspection/Auscultation: abdomen not distended and no abdominal edema Percussion/Palpation: abdomen soft; abdomen nontender Musculoskeletal: Head/Neck/Chest: normocephalic Skin: see Neurologic: awake; not confused and not obtunded Psychiatric: Eye Contact: good eye contact Genitourinary: posterior scrotum - indurated, mildly fluctuant thick mass in posterior scrotum with mild surrounding cellulitis. Very tender to light touch. Non-draining. Lymphatic: no inguinal lymphadenopathy Results & Data Laboratory Results Laboratory Results - last 48 hr 10/01/18 10/01/18 10/01/18 19:05 19:05 19:05 WBC 13.53 H RBC 5.08 Hgb 15.6 POC Hgb Hct 44.4 POC Hct MCV 87.4 MCH 30.7 MCHC 35.1 RDW Std Deviation 44.6 RDW Coeff of Elvia 13.9 Plt Count 168 MPV 10.7 H Immature Gran % (Auto) 0.1 Neut % (Auto) 73.9 Lymph % (Auto) 11.2 [place] % (Auto) 13.3 Eos % (Auto) 1.2 Baso % (Auto) 0.3 Immature Gran # (Auto) 0.02 Neut # (Auto) 9.99 H Lymph # (Auto) 1.52 [place] # (Auto) 1.80 H Eos # (Auto) 0.16 Baso # (Auto) 0.04 PT 10.8 INR 1.1 APTT 26.1 PTT Ratio 1.0 POC Sodium Sodium 135 L POC Potassium Potassium 2.8 L POC Chloride Chloride 97 L Carbon Dioxide 31 POC Total CO2 Anion Gap 7.0 POC Anion Gap POC BUN BUN 18 Creatinine 0.96 POC Creatinine Est Cr Clr Drug Dosing 104.3 Est GFR ( Amer) 99.2 Est GFR (Non-Af Amer) 85.6 BUN/Creatinine Ratio 18.5 Glucose 106 H POC Glucose (other) Lactate Calcium 8.8 POC Ioniz Calcium Escobar Magnesium 1.7 L Total Bilirubin 0.7 AST 14 L ALT 30 Alkaline Phosphatase 82 Total Protein 8.3 H Albumin 3.7 Globulin 4.6 H Albumin/Globulin Ratio 0.8 L Urine Color Urine Appearance Urine pH Ur Specific [place] Urine Protein Urine Glucose (UA) Urine Ketones Urine Blood Urine Nitrite Urine Bilirubin Urine Urobilinogen Ur Leukocyte Esterase Hepatitis C Ab Screen 10/01/18 10/01/18 10/01/18 19:05 19:08 19:16 WBC RBC Hgb POC Hgb 16.3 Hct POC Hct 48 MCV MCH MCHC RDW Std Deviation RDW Coeff of Elvia Plt Count MPV Immature Gran % (Auto) Neut % (Auto) Lymph % (Auto) [place] % (Auto) Eos % (Auto) Baso % (Auto) Immature Gran # (Auto) Neut # (Auto) Lymph # (Auto) [place] # (Auto) Eos # (Auto) Baso # (Auto) PT INR APTT PTT Ratio POC Sodium 138 Sodium POC Potassium 2.8 L Potassium POC Chloride 95 L Chloride Carbon Dioxide POC Total CO2 31 Anion Gap POC Anion Gap 16.0 POC BUN 16 BUN Creatinine POC Creatinine 0.9 Est Cr Clr Drug Dosing Est GFR ( Amer) Est GFR (Non-Af Amer) BUN/Creatinine Ratio Glucose POC Glucose (other) 108 H Lactate 1.7 Calcium POC Ioniz Calcium [place] 1.03 L Magnesium Cancelled Total Bilirubin AST ALT Alkaline Phosphatase Total Protein Albumin Globulin Albumin/Globulin Ratio Urine Color Urine Appearance Urine pH Ur Specific [place] Urine Protein Urine Glucose (UA) Urine Ketones Urine Blood Urine Nitrite Urine Bilirubin Urine Urobilinogen Ur Leukocyte Esterase Hepatitis C Ab Screen 10/01/18 10/02/18 10/02/18 20:30 06:27 06:27 WBC RBC Hgb POC Hgb Hct POC Hct MCV MCH MCHC RDW Std Deviation RDW Coeff of Elvia Plt Count MPV Immature Gran % (Auto) Neut % (Auto) Lymph % (Auto) [place] % (Auto) Eos % (Auto) Baso % (Auto) Immature Gran # (Auto) Neut # (Auto) Lymph # (Auto) [place] # (Auto) Eos # (Auto) Baso # (Auto) PT INR APTT PTT Ratio POC Sodium Sodium 138 POC Potassium Potassium 3.0 L POC Chloride Chloride 103 Carbon Dioxide 29 POC Total CO2 Anion Gap 6.0 POC Anion Gap POC BUN BUN 10 D Creatinine 0.78 POC Creatinine Est Cr Clr Drug Dosing 127.4 Est GFR ( Amer) 113.7 Est GFR (Non-Af Amer) 98.1 BUN/Creatinine Ratio 13.5 Glucose 127 H POC Glucose (other) Lactate Calcium 7.5 L POC Ioniz Calcium [place] Magnesium 2.1 Total Bilirubin AST ALT Alkaline Phosphatase Total Protein Albumin Globulin Albumin/Globulin Ratio Urine Color Yellow Urine Appearance Clear Urine pH 5.0 Ur Specific [place] > 1.045 H Urine Protein Negative Urine Glucose (UA) Negative Urine Ketones Negative Urine Blood Negative Urine Nitrite Negative Urine Bilirubin Negative Urine Urobilinogen Negative Ur Leukocyte Esterase Negative Hepatitis C Ab Screen Neg
[2018-10-02] MEDS ORDERED: DIAZEPAM 5 MG/ML INJ 10ML VIAL IV STA (08:29)
[2018-10-02] MEDS ORDERED: LIDOCAINE/EPINEPHRINE 1% 20 ML VIAL INFIL SCH (09:00)
[2018-10-02] MEDS ORDERED: HYDROmorphone INJ 1 MG/ML SYRINGE IV SCH (09:00)
[2018-10-02] MEDS ORDERED: LORazepam 1 MG TAB SL STA (09:10)
[2018-10-02] MEDS: cloNIDine HCl 0.1 MG TAB PO SCH ×2 (10:09→19:59)
[2018-10-02] MEDS: PANTOprazole 40 MG TAB PO SCH ×2 (10:10→20:00)
[2018-10-02] MEDS: D5NSS + 20MEQ KCL 20 MEQ/1,000 ML BAG IV SCH (10:19)
[2018-10-02] MEDS ORDERED: POTASSIUM CHLORIDE 10 MEQ TABCR PO STA (10:27)
--- NOTE | 2018-10-02 10:27 | Hospitalist Progress Note ---
Date of Service October 02, 2018 Assessment & Plan (1) Abscess of scrotum: - Surrounding Cellulitis improving per pt. - CT pelvis confirms cellulitis and abscess involving the posterior scrotal wall and adjacent perineum. - Follow with urology as outpatient. Has required scrotal abscess drainage previously - I&D completed today, continue pain meds per EMR, encourage ambulation, keep area clean and dry. - Continue Zosyn/Clinda. started on 10/01/18. - Follow wound cultures/gram stain - Afebrile since admission but has subjective fever/chills. Continue to monitor. - WBC was 13 K upon admission, follow cbc with am lab tomorrow. (2) Rheumatoid arthritis: RA - currently taking Orencia - f/u as outpt (3) Psoriatic arthritis: - Stable (4) Hyperlipidemia: -Stable (5) HTN (hypertension): Lisinopril and Aldactone held for AM procedure - cont Clonidine BID (6) Acute hypokalemia: - Replaced upon admission, on 10/02 repeat PRP with K=3.0. Replace with IV and PO. (7) GERD (gastroesophageal reflux disease): - cont PPi (8) Sleep apnea: - Continue CPAP HS, encourage to wear if napping during the day as well. Subjective The patient was seen and examined this morning. Pt is sleeping upon entry into the room. Pt underwent bedside I&D this morning for perianal/scrotal abscess. He is quite sleepy post procedure. Pt denies acute pain. He is requesting a diet pepsi. ROS Constitutional: reported fever prior to admission, having intermittent chills, no sweats Eyes: No diplopia, no worsening or blurred vision ENT: normal hearing, no trouble swallowing Respiratory: No cough, sputum, dyspnea at rest or on exertion Cardiovascular: No chest pain, tightness or palpitations Abdomen: No pain, nausea, vomiting, diarrhea or constipation : +pressure with urination, no BM since admission, + pain tolerable. Musculoskeletal: No joint pain, calf pain, swelling Neurologic: No weakness, numbness/tingling, or balance problems Psychiatric: No anxiety or depression Skin: No rash or itch Physical Exam 2 Vital Signs (Past 24 Hours): Last Vital Signs Temp 36.7 C 10/02/18 07:40 Pulse 86 10/02/18 07:40 Resp 14 10/02/18 07:40 BP 133/77 10/02/18 07:40 Pulse Ox 93 10/02/18 07:40 Physical Exam: General: asleep upon entry but easily awakens, alert, no apparent distress Head: Normocephalic, atraumatic ENT: PERRL, EOMI, no pharyngeal exudate, mucous membranes moist Chest: Clear to auscultation, on room air, no adventitious breath sounds Cardiac: Regular rate and rhythm, no murmur, no JVD, normal peripheral pulses, good capillary refill Abdominal: NABS x 4 quadrants, soft, nontender to palpation, no rebound, guarding or tenderness : scrotum edematous, + minimal bleeding on bandage in perianal region Extremities: Normal inspection, no peripheral edema or erythema, calfs nontender to palpation Psych: Normal mood and affect Neuro: AAO x 3, strength intact bilaterally and related 5/5, no motor deficits, speech is clear, no peripheral sensory deficits
--- NOTE | 2018-10-02 12:59 | Operative Report ---
Post Operative Report Pre & Post Diagnosis Scrotal / Perineal Abscess Same Procedure Incision and drainage and packing of scrotal abscess Surgeon Andriy Hull, II, DO Assortment Planner Celina Estimated Blood Loss 5 Findings Consistent with Post-Op Diagnosis Large abscess cavity tracking to scrotum and superiorly. No fluctuance on rectal exam. Specimens General Culture x 2, anaerobic x 1 Drains None. 0.5 Iodoform Packing Anesthesia Type Local Complications none Indications Large scrotal/perineal abscess. Risks and benefits discussed at length. Description of Procedure Patient was consented and placed into the lateral position for a bed side procedure on the floor. Patient was prepped and draped in the regular sterile fashion. A time out was completed identifying the correct patient, procedure, and place. With the time out completed, the median raphe was marked and local injected into the subcutaneous tissues at the perineum and dependent scrotum. An incision was made with an 11 blade scalpel and the deep tissues were dissected. A finger was used to probe the wound. The fluctuant abscess cavity was able to be assessed. The 11 blade scalpel was used to make a deep incision into the tissues. A large purulent pocket was discovered and opened. Cultures were taken. The wound was probed. Multiple large loculations were disrupted. Additions pockets were tracked anterior to the scrotum and superiorly. The wound was washed out copiously. The area was assess. No major bleeding. No additional pockets or loculations. The washout was completed again. The wound was then packed with 0.5 iodoform packing. The area was cleaned. A rectal exam was completed and no fluctuance or other masses or lesions were noted. The majority of the abscess cavity did appear to track superiorly from the perineum. The patient was cleaned, assessed for stability, and was found to be in stable condition having tolerated the procedure well with no complications. I was present and participated in all aspects of the procedure. LUCY Barajas was integral in drainage and management of procedure. Assisted with retraction, anesthetic injection, and culture collection. I attest to the content of the Intraoperative Record and any orders documented therein. Any exceptions are noted below.
[2018-10-02] MEDS: TRAMADOL HCL 50 MG TABLET PO PRN (19:58)
[2018-10-02] MEDS: LACTATED RINGER'S 1,000 ML IV SCH (21:16)
[2018-10-03] MEDS: PIPERACILLIN/TAZOBACTAM 4.5 GM/120 ML BAG IV SCH ×3 (01:11→18:49)
[2018-10-03] MEDS: ACETAMINOPHEN 1,000 MG/100 ML VIAL IV PRN (01:11)
[2018-10-03] MEDS: CLINDAMYCIN 600 MG in DEXTROSE 5% 50 ML IV SCH ×3 (05:00→22:41)
[2018-10-03] MEDS: MoRPHine SULFATE 4 MG/ML 1 ML CARP\\VIAL IV PRN ×2 (06:16→09:36)
[2018-10-03 08:16] LABS: Hematocrit (blood only) 38.5 % (42-52); Hemoglobin 13.1 g/dL (14.0-18.0); Mean Corpuscular Volume 89.3 fL (80-100); Mean Platelet Volume 10.8 fL (7.4-10.4); Platelet Count 110 K/uL (130-400); RDW Standard Deviation 46.1 fL (36.4-46.3); Red Blood Count 4.31 M/uL (4.7-6.1); White Blood Count 6.04 K/uL (4.8-10.8)
[2018-10-03] MEDS: PANTOprazole 40 MG TAB PO SCH ×2 (08:44→21:58)
[2018-10-03] MEDS: LACTATED RINGER'S 1,000 ML IV SCH (08:44)
[2018-10-03] MEDS: cloNIDine HCl 0.1 MG TAB PO SCH ×2 (08:44→21:58)
[2018-10-03] MEDS: TRAMADOL HCL 50 MG TABLET PO PRN ×2 (08:45→18:55)
--- NOTE | 2018-10-03 10:49 | Urology Progress Note ---
Date of Service October 03, 2018 Assessment & Plan (1) Abscess of scrotum: 58yo M posterior scrotal wall abscess, with surrounding cellulitis. +/- extension to perineum. POD #1 s/p bedside scrotal I&D with packing. Fevers overnight. Prelim wound cx: few gram negative bacilli Continue zosyn and clinda IV. Dressing change: Pt premedicated with morphine by RN. Packing removed easily, followed by small amount of thick clotted bloody. Wound irrigated with sterile saline. Small amount of packing able to be reinserted into wound. Okay to change topical dressing as needed for saturation. We will continue to follow with primary service. Subjective POD #1 s/p bedside I&D scrotal abscess. Prelim wound cx: few gram negative bacilli Overall feeling better today, pain improved from yesterday. Spiked fevers last event, Tmax 39.4 last evening. Labs reviewed, WBC improved. Had one BM yesterday, states it was loose. Denies blood in stool. States he felt "loopy and out of it" most of the day yesterday following procedure. Premedicated with Ativan and dilaudid, did require straight cath x1 yesterday. Voiding spontaneously without difficulty now. Denies suprapubic pressure, flank pain. Denies hematuria, urgency/frequency. Feels his stream has improved. Physical Exam Vital Signs (Past 24 Hours): Last Vital Signs Temp 37.1 C 10/03/18 08:05 Pulse 92 H 10/03/18 08:05 Resp 18 10/03/18 08:05 BP 144/92 H 10/03/18 08:05 Pulse Ox 93 10/03/18 08:05 Physical Exam: A&Ox3 RRR abd soft, nontender. Posterior scrotal incision: improved cellulitis, induration to L>R. No increased warmth. Results & Data Laboratory Results Laboratory Results - last 48 hr 10/01/18 10/01/18 10/01/18 19:05 19:05 19:05 WBC 13.53 H RBC 5.08 Hgb 15.6 POC Hgb Hct 44.4 POC Hct MCV 87.4 MCH 30.7 MCHC 35.1 RDW Std Deviation 44.6 RDW Coeff of Elvia 13.9 Plt Count 168 MPV 10.7 H Immature Gran % (Auto) 0.1 Neut % (Auto) 73.9 Lymph % (Auto) 11.2 [place] % (Auto) 13.3 Eos % (Auto) 1.2 Baso % (Auto) 0.3 Immature Gran # (Auto) 0.02 Neut # (Auto) 9.99 H Lymph # (Auto) 1.52 [place] # (Auto) 1.80 H Eos # (Auto) 0.16 Baso # (Auto) 0.04 PT 10.8 INR 1.1 APTT 26.1 PTT Ratio 1.0 POC Sodium Sodium 135 L POC Potassium Potassium 2.8 L POC Chloride Chloride 97 L Carbon Dioxide 31 POC Total CO2 Anion Gap 7.0 POC Anion Gap POC BUN BUN 18 Creatinine 0.96 POC Creatinine Est Cr Clr Drug Dosing 104.3 Est GFR ( Amer) 99.2 Est GFR (Non-Af Amer) 85.6 BUN/Creatinine Ratio 18.5 Glucose 106 H POC Glucose (other) Lactate Calcium 8.8 POC Ioniz Calcium [place] Magnesium 1.7 L Total Bilirubin 0.7 AST 14 L ALT 30 Alkaline Phosphatase 82 Total Protein 8.3 H Albumin 3.7 Globulin 4.6 H Albumin/Globulin Ratio 0.8 L Urine Color Urine Appearance Urine pH Ur Specific [place] Urine Protein Urine Glucose (UA) Urine Ketones Urine Blood Urine Nitrite Urine Bilirubin Urine Urobilinogen Ur Leukocyte Esterase Hepatitis C Ab Screen 10/01/18 10/01/18 10/01/18 19:05 19:08 19:16 WBC RBC Hgb POC Hgb 16.3 Hct POC Hct 48 MCV MCH MCHC RDW Std Deviation RDW Coeff of Elvia Plt Count MPV Immature Gran % (Auto) Neut % (Auto) Lymph % (Auto) [place] % (Auto) Eos % (Auto) Baso % (Auto) Immature Gran # (Auto) Neut # (Auto) Lymph # (Auto) [place] # (Auto) Eos # (Auto) Baso # (Auto) PT INR APTT PTT Ratio POC Sodium 138 Sodium POC Potassium 2.8 L Potassium POC Chloride 95 L Chloride Carbon Dioxide POC Total CO2 31 Anion Gap POC Anion Gap 16.0 POC BUN 16 BUN Creatinine POC Creatinine 0.9 Est Cr Clr Drug Dosing Est GFR ( Amer) Est GFR (Non-Af Amer) BUN/Creatinine Ratio Glucose POC Glucose (other) 108 H Lactate 1.7 Calcium POC Ioniz Calcium [place] 1.03 L Magnesium Cancelled Total Bilirubin AST ALT Alkaline Phosphatase Total Protein Albumin Globulin Albumin/Globulin Ratio Urine Color Urine Appearance Urine pH Ur Specific [place] Urine Protein Urine Glucose (UA) Urine Ketones Urine Blood Urine Nitrite Urine Bilirubin Urine Urobilinogen Ur Leukocyte Esterase Hepatitis C Ab Screen 10/01/18 10/02/18 10/02/18 20:30 06:27 06:27 WBC RBC Hgb POC Hgb Hct POC Hct MCV MCH MCHC RDW Std Deviation RDW Coeff of Elvia Plt Count MPV Immature Gran % (Auto) Neut % (Auto) Lymph % (Auto) [place] % (Auto) Eos % (Auto) Baso % (Auto) Immature Gran # (Auto) Neut # (Auto) Lymph # (Auto) [place] # (Auto) Eos # (Auto) Baso # (Auto) PT INR APTT PTT Ratio POC Sodium Sodium 138 POC Potassium Potassium 3.0 L POC Chloride Chloride 103 Carbon Dioxide 29 POC Total CO2 Anion Gap 6.0 POC Anion Gap POC BUN BUN 10 D Creatinine 0.78 POC Creatinine Est Cr Clr Drug Dosing 127.4 Est GFR ( Amer) 113.7 Est GFR (Non-Af Amer) 98.1 BUN/Creatinine Ratio 13.5 Glucose 127 H POC Glucose (other) Lactate Calcium 7.5 L POC Ioniz Calcium [place] Magnesium 2.1 Total Bilirubin AST ALT Alkaline Phosphatase Total Protein Albumin Globulin Albumin/Globulin Ratio Urine Color Yellow Urine Appearance Clear Urine pH 5.0 Ur Specific [place] > 1.045 H Urine Protein Negative Urine Glucose (UA) Negative Urine Ketones Negative Urine Blood Negative Urine Nitrite Negative Urine Bilirubin Negative Urine Urobilinogen Negative Ur Leukocyte Esterase Negative Hepatitis C Ab Screen Neg 10/03/18 07:52 WBC 6.04 RBC 4.31 L Hgb 13.1 L POC Hgb Hct 38.5 L POC Hct MCV 89.3 MCH 30.4 MCHC 34.0 RDW Std Deviation 46.1 RDW Coeff of Elvia 14.0 Plt Count 110 L MPV 10.8 H Immature Gran % (Auto) Neut % (Auto) Lymph % (Auto) [place] % (Auto) Eos % (Auto) Baso % (Auto) Immature Gran # (Auto) Neut # (Auto) Lymph # (Auto) [place] # (Auto) Eos # (Auto) Baso # (Auto) PT INR APTT PTT Ratio POC Sodium Sodium POC Potassium Potassium POC Chloride Chloride Carbon Dioxide POC Total CO2 Anion Gap POC Anion Gap POC BUN BUN Creatinine POC Creatinine Est Cr Clr Drug Dosing Est GFR ( Amer) Est GFR (Non-Af Amer) BUN/Creatinine Ratio Glucose POC Glucose (other) Lactate Calcium POC Ioniz Calcium [place] Magnesium Total Bilirubin AST ALT Alkaline Phosphatase Total Protein Albumin Globulin Albumin/Globulin Ratio Urine Color Urine Appearance Urine pH Ur Specific [place] Urine Protein Urine Glucose (UA) Urine Ketones Urine Blood Urine Nitrite Urine Bilirubin Urine Urobilinogen Ur Leukocyte Esterase Hepatitis C Ab Screen
--- NOTE | 2018-10-03 21:04 | Surgery Consultation ---
Date of Consultation October 03, 2018 Assessment & Plan (1) Abscess of scrotum: 58 yo male admitted with cellulitis and associated abscess of the scrotum and perineum. He is s/p debridement by Urology. No evidence of perirectal abscess or involvement on CT scan or on exam, and leukocytosis is improving. No further debridement or emergent surgical intervention is recommended. He should have colonoscopies at frequency as recommended on prior colonoscopy (results currently unavailable for my review). History of Present Illness Reason for Consultation: Scrotal and perineal abscess with concern for rectal etiology Attending Physician: Manuelito Gordon History of Present Illness Patient is a 58 yo male who presented with an abscess of the scrotum and perineum and is s/p debridement by Urology. The patient reports having 4-5 similar abscesses over the past 4-5 years. Prior to this admission these were "lanced with a small incision" in the ER per the patient report. He denies any rectal pain. Denies constipation, diarrhea, and abdominal pain. Denies prior or current rectal bleeding. Due to multiple abscesses General Surgery was asked to evaluate the patient for potential rectal etiology. Pt does report having a colonoscopy in the past but does not recall when this was. He thinks it was after the onset of inital episodes of perineal abscesses. Allergies Allergy/AdvReac Type Severity Reaction Status Date / Time amlodipine Allergy Unknown UNKNOWN Verified 10/05/16 08:07 methotrexate Allergy Unknown . Verified 10/05/16 08:07 Home Medications Home Medications Medication Instructions Recorded Confirmed Type abatacept [Orencia] 125 mg SUBCUT WK 10/01/18 10/01/18 History albuterol sulfate [Ventolin HFA] 2 puff INHALATION Q4H PRN 10/01/18 10/01/18 History cholecalciferol (vitamin D3) 1,000 unit PO DAILY 10/01/18 10/01/18 History cholestyramine (with sugar) 1 packet PO DAILY 10/01/18 10/01/18 History clonidine HCl 0.1 mg PO BID 10/01/18 10/01/18 History fluticasone-vilanterol [Breo 1 puff INHALATION DAILY 10/01/18 10/01/18 History Ellipta] hydrochlorothiazide 50 mg PO DAILY 10/01/18 10/01/18 History hydrocodone-acetaminophen 1 tab PO Q4H PRN 10/01/18 10/01/18 History leflunomide 20 mg PO DAILY 10/01/18 10/01/18 History lisinopril 40 mg PO DAILY 10/01/18 10/01/18 History melatonin 5 mg PO HS PRN 10/01/18 10/01/18 History meloxicam 15 mg PO DAILY 10/01/18 10/01/18 History nabumetone 500 mg PO BID 10/01/18 10/01/18 History omeprazole 20 mg PO BID 10/01/18 10/01/18 History spironolactone 25 mg PO DAILY 10/01/18 10/01/18 History Patient History Medical History Abscess of scrotum (Acute) Acute hypokalemia (Acute) GERD (gastroesophageal reflux disease) Rheumatoid arthritis Psoriatic arthritis Hyperlipidemia HTN (hypertension) (Chronic) Sleep apnea (Chronic) Social History Preferred Language: Greek Communication Ability: Effective Vegetable Sorter Required: No Beliefs That Will Affect Care: None Current Living Situation: Family and Other Current Living Situation Comment: Dogs/Daughter and grandchildren Other Information That Helps Us Care for You: No Feels Safe at Home: Yes Safety Concerns: Feels Safe At This Time Smoking Status: Never smoker Hx Alcohol Use: Yes Hx Substance Use: No Review of Systems Constitutional: + fever, + chills and + sweats Respiratory: no cough and no dyspnea Cardiovascular: no chest pain, no dyspnea and no dyspnea at rest Gastrointestinal: no abdominal pain, no heartburn, no nausea, no vomiting, no change in bowel habits, no constipation and no diarrhea/loose stools Genitourinary (Male): no dysuria and no urinary frequency Physical Exam Vital Signs (Past 24 Hours): Last Vital Signs Temp 37.2 C 10/03/18 16:21 Pulse 95 H 10/03/18 16:21 Resp 18 10/03/18 16:21 BP 124/77 10/03/18 16:21 Pulse Ox 94 10/03/18 16:21 Constitutional: WD/WN, vitals as above well developed; no acute distress Eyes: PERRL, conjunctivae normal, anicteric sclerae ENMT: external ear and nose normal, oropharynx normal Respiratory: normal respiratory effort Cardiovascular: Rate/Rhythm: regular rate and regular rhythm Gastrointestinal (Abdomen): Abdomen: soft, nontender, nondistended Rectum: no external lesions or hemorrhoids, no fluctuance; JAIRON limited due to pain caused on the perineum, but normal tone, no fluctuance, no obvious masses Skin: no rashes, warm and dry Results & Data Laboratory Results Abnormal lab results 10/03/18 Range/Units 07:52 RBC 4.31 L (4.7-6.1) M/uL Hgb 13.1 L (14.0-18.0) g/dL Hct 38.5 L (42-52) % Plt Count 110 L (130-400) K/uL MPV 10.8 H (7.4-10.4) fL Diagnostic Findings CT Abdomen/Pelvis FINDINGS: The bladder, prostate, and seminal vesicles are normal in appearance. The testes are normal as imaged. There is scrotal wall thickening and edema, greatest posteriorly on the left. There is a thick walled and peripherally enhancing fluid collection identified within the posterior wall of the scrotum end adjacent perineal soft tissues, best seen on image #294. This measures 4.6 x 4.4 x 1.9 cm as seen on axial image #290. The appearance is typical for abscess. The visualized loops of small bowel and colon are normal in caliber. A normal appendix is identified. The perianal soft tissues are normal as imaged. There is no free fluid in the pelvis. No pelvic sidewall or inguinal adenopathy is seen. The bony pelvis appears intact. No lytic or blastic lesion is seen. Degenerative change and partial fusion is noted in the sacroiliac joints. The regional musculature is normal and symmetric. A surgical clip versus metallic foreign body is present within the right anterior upper thigh on image #296. IMPRESSION: There is evidence of cellulitis and abscess involving the posterior scrotal wall and adjacent perineum as detailed above
--- NOTE | 2018-10-03 22:55 | Hospitalist Progress Note ---
Date of Service October 03, 2018 Assessment & Plan (1) Abscess of scrotum: - Surrounding Cellulitis improving. - CT pelvis confirms cellulitis and abscess involving the posterior scrotal wall and adjacent perineum. - Follow with urology as outpatient. Has required scrotal abscess drainage p reviously - I&D completed on 10/02, continue pain meds per EMR, encourage ambulation, keep area clean and dry. - Continue Zosyn/Clinda. started on 10/01/18. - Follow wound cultures/gram stain: final cultures still pending. - Afebrile since admission but has subjective fever/chills. Continue to monitor. - Goal is to discharge patient hopefuly within 1-2 days once cultures are back -Obtained surgery consult, no further intervention indicated. -awaiting further input from urology. -If culture is pansensitive, perhaps discharge patient on bactrim with wound care. -Will confirm with urology. (2) Rheumatoid arthritis: RA - currently taking Orencia - f/u as outpt (3) Psoriatic arthritis: - Stable (4) Hyperlipidemia: -Stable (5) HTN (hypertension): Lisinopril and Aldactone held for AM procedure - cont Clonidine BID (6) Acute hypokalemia: - Replaced upon admission, on 10/02 repeat PRP with K=3.0. will repeat for 10/04 (7) GERD (gastroesophageal reflux disease): - cont PPi (8) Sleep apnea: - Continue CPAP HS, encourage to wear if napping during the day as well. Subjective The patient was seen and examined this morning. Pt is sleeping upon entry into the room. Pt upon entering room resting comfortably and sleeping. Physical Exam Vital Signs (Past 24 Hours): Last Vital Signs Temp 37.2 C 10/03/18 22:36 Pulse 62 10/03/18 22:36 Resp 18 10/03/18 22:36 BP 133/83 10/03/18 22:36 Pulse Ox 90 10/03/18 22:36 Constitutional: WD/WN, vitals as above well developed; no acute distress ENMT: External ears and nose is normal Respiratory: normal respiratory effort; does not use accessory muscles Musculoskeletal: Head/Neck/Chest: + head abnormal to inspection, normocephalic and head atraumatic
[2018-10-04] MEDS: PIPERACILLIN/TAZOBACTAM 4.5 GM/120 ML BAG IV SCH ×2 (01:01→10:05)
[2018-10-04] MEDS: ACETAMINOPHEN 1,000 MG/100 ML VIAL IV PRN (01:01)
[2018-10-04] MEDS: CLINDAMYCIN 600 MG in DEXTROSE 5% 50 ML IV SCH ×2 (05:02→14:29)
[2018-10-04 10:00] LABS: Creatinine Clr Calc Pharmacy 146.1 ml/min; Est GFR (African American) 120.3; Est GFR (Non-African American) 103.8
[2018-10-04] MEDS: cloNIDine HCl 0.1 MG TAB PO SCH (10:04)
[2018-10-04] MEDS: PANTOprazole 40 MG TAB PO SCH (10:05)
[2018-10-04 12:29] LABS: BUN Creatinine Ratio 9.9 (10-20); Calcium 7.9 mg/dl (8.5-10.1); Creatinine Clr Calc Pharmacy 148.3 ml/min; Est GFR (Non-African American) 104.4
[2018-10-04] MEDS: POTASSIUM CHLORIDE / WTR 10 MEQ/100 ML PLCT IV SCH ×3 (15:45→17:54)
[2018-10-04] MEDS: TRAMADOL HCL 50 MG TABLET PO PRN (15:49)
--- NOTE | 2018-10-04 19:31 | Urology Progress Note ---
Date of Service October 04, 2018 Assessment & Plan (1) Abscess of scrotum: A/P 58 yo male POD#2 s/p I&D of perineal abscess. Healing well. Showering and rinsing recommended. Wet to dry dressing BID. Wound care reviewed with patient. Clinically improved. Should be stable for DC home with oral antibiotics, wound care and outpatient wound check in short order with our service. Worrisome signs and symptoms reviewed. Thank you for allowing us to participate in this patient's acute care. Please recall our service as needed with any further questions or concerns. Subjective 58 yo male POD#2 s/p I&D of perineal abscess. He reports he feels much improved from baseline, pain improved. No new c/o, past notes reviewed. Constitutional: no fever and no chills Ear, Nose, Mouth, Throat: no dizziness Respiratory: no hemoptysis Cardiovascular: no chest pain Gastrointestinal: no nausea and no vomiting Genitourinary (Male): no testicle pain Integumentary: no acne and no boil Neurologic: no paralysis and no numbness Hematologic / Lymphatic: no easy bleeding and no lymphadenopathy Physical Exam Vital Signs (Past 24 Hours): Last Vital Signs Temp 37.1 C 10/04/18 15:09 Pulse 75 10/04/18 15:09 Resp 18 10/04/18 15:09 BP 160/78 H 10/04/18 15:09 Pulse Ox 100 10/04/18 15:09 Constitutional: WD/WN, vitals as above Neck: trachea midline; no anterior neck swelling Respiratory: no respiratory distress and does not use accessory muscles Cardiovascular: Vessels: radial pulses present Gastrointestinal (Abdomen): Percussion/Palpation: abdomen soft; abdomen nontender and no guarding Musculoskeletal: Head/Neck/Chest: + abnormal head shape Skin: normal turgor Neurologic: awake; not obtunded Psychiatric: Orientation: oriented x 3 Genitourinary: Perineal area inspected - minimal tenderness, no drainage, skin necrosis or breakdown or evidence of cellulitis. Healing quickly. Results & Data Laboratory Results Laboratory Results - last 48 hr 10/03/18 10/04/18 10/04/18 07:52 09:22 11:39 WBC 6.04 RBC 4.31 L Hgb 13.1 L Hct 38.5 L MCV 89.3 MCH 30.4 MCHC 34.0 RDW Std Deviation 46.1 RDW Coeff of Elvia 14.0 Plt Count 110 L MPV 10.8 H Sodium 140 Potassium 3.0 L Chloride 106 Carbon Dioxide 28 Anion Gap 6.0 BUN 7 Creatinine 0.68 0.67 Est Cr Clr Drug Dosing 146.1 148.3 Est GFR ( Amer) 120.3 121.0 Est GFR (Non-Af Amer) 103.8 104.4 BUN/Creatinine Ratio 9.9 L Glucose 112 H Calcium 7.9 L
--- NOTE | 2018-10-05 08:45 | Discharge Summary ---
Date of Service October 09, 2018 Admission HPI Per Admitting Provider 58 y/o M Hx HTN, HLD, LINO, GERD, PUD, RA, history of cellulitis of groin/scrotum. Presenting with scrotal and groin pain. Has had subjective fevers at home. The pt states that he develops this approximately once a year and has required surgical drainage of a scrotal abscess in the past. Initial labs are notable for leukocytosis and hypokalemia. A CT pelvis confirms cellulitis and abscess involving the posterior scrotal wall and adjacent perineum. PMH: 1) HTN 2) HLD 3) Obese 4) RA 5) GERD 6) PUD Surgical: I&D if scrotal abscess Social: Retired from [employer], no smoking history, drinks rarely. Family: Both parents owing to "heart problems" Discharge Data Consultations 10/01/18 21:22 ED Decision to Admit Stat 10/01/18 22:56 Consult Urology Routine 10/03/18 11:25 Consult General Surgery Routine
--- NOTE | 2018-10-08 10:01 | Discharge Summary ---
Date of Service Oct 04, 2018 Admission HPI Per Admitting Provider 58 y/o M Hx HTN, HLD, LINO, GERD, PUD, RA, history of cellulitis of groin/scrotum. Presenting with scrotal and groin pain. Has had subjective fevers at home. The pt states that he develops this approximately once a year and has required surgical drainage of a scrotal abscess in the past. Initial labs are notable for leukocytosis and hypokalemia. A CT pelvis confirms cellulitis and abscess involving the posterior scrotal wall and adjacent perineum. PMH: 1) HTN 2) HLD 3) Obese 4) RA 5) GERD 6) PUD Surgical: I&D if scrotal abscess Social: Retired from [employer], no smoking history, drinks rarely. Family: Both parents owing to "heart problems" Principal Diagnosis perineal abscess. Discharge Exam General: AAO x 3, no distress ENT: No erythema or exudates, no thrush Eyes: ANA, EOMI Head and neck: Normocephalic, atraumatic, No JVD, neck is supple. Chest/heart: Nontender, S1,2, RRR, no murmurs, no gallops Lungs: CTAB, no wheezing or crackles Abdomen: Nontender, nondistended, BS+ : Scrotum appears generally inflamed without discretely affected area Neuro: AAO x 3, speech is clear, no unilateral weakness or loss of sensation, coordination intact Musculoskeletal: No joint inflammation, muscle tenderness, FROM Skin: No acute rashes or ulcers Extremities: No clubbing, cyanosis, edema Discharge Data Allergies Allergy/AdvReac Type Severity Reaction Status Date / Time amlodipine Allergy Unknown UNKNOWN Verified 10/05/16 08:07 methotrexate Allergy Unknown . Verified 10/05/16 08:07 Consultations 10/01/18 21:22 ED Decision to Admit Stat 10/01/18 22:56 Consult Urology Routine 10/03/18 11:25 Consult General Surgery Routine Ordered Studies 10/01/18 18:37 CT pelvis w/IV con only Stat Hospital Course (1) Abscess of scrotum: - Surrounding Cellulitis improving. - CT pelvis confirms cellulitis and abscess involving the posterior scrotal wall and adjacent perineum. - Follow with urology as outpatient. Has required scrotal abscess drainage previously - I&D completed on 10/02, continue pain meds per EMR, encourage ambulation, keep area clean and dry. - Continue Zosyn/Clinda. started on 10/01/18. - Follow wound cultures/gram stain: final cultures showed K. Pneumo, sensitive to bactrim. Appreciate Urology Input: I&D of perineal abscess. Healing well. Showering and rinsing recommended. Wet to dry dressing BID. Wound care reviewed with patient. Clinically improved. Should be stable for DC home with oral antibiotics, wound care and outpatient wound check in short order with our service. (2) Rheumatoid arthritis: RA - currently taking Orencia - f/u as outpt (3) Psoriatic arthritis: - Stable (4) Hyperlipidemia: -Stable (5) HTN (hypertension): Lisinopril and Aldactone held for AM procedure - cont Clonidine BID (6) Acute hypokalemia: Replaced. (7) GERD (gastroesophageal reflux disease): - cont PPi (8) Sleep apnea: - Continue CPAP HS, encourage to wear if napping during the day as well. Total Time Total Time Spent Total Time Spent (In Minutes): 32 Total Time Includes: Examination of the Patient, Discharge Planning and Medication Reconciliation Discharge Plan Discharge Items Patient Disposition: Home - Self-Care Reason For Visit: SROTAL CELLULITIS Discharge Diagnosis: Scrotal cellulitis Condition: Good Discharge Goals: Decrease discomfort Activity: Resume your previous activity Non-emergency contact: Surgeon and Urologist Call non-emergency contact if: you have any medication questions Follow-up/Referrals: Ken Briceno III, MD [Primary Care Provider] - 10/08/18 3:40 pm (Please, follow up with Dr. Briceno on MondayOctober 08 at 3:40 pm. *If you have any questions, call the office at [phone]. ) Juan Ngo DO, AQUILES [Physician] - 10/16/18 11:00 am (Please, follow up at [facility] General Surgery Office with Dr. Ngo on MondayOctober 16 at 11:00 am. The urologist, Dr. Hull, recommended this follow up appointment. *This office is located at [address] [place] [address] in [place]. If you need to change this appointment, call the office at [phone].) Andriy Hull II, DO [Physician] - 10/23/18 2:40 pm (Please, follow up at [facility] Urology Office with Dr. Hull on MondayOctober 23 at 2:40 pm. *This office is located at [address] [facility] in [place]. If you need to change this appointment, call the office at [phone].) Diet: Heart Healthy Addtl Provider Instructions: Continue to change dressing daily with 4 x 4 gauze. Continue with antibiotics for 12 more days. Prescriptions: New sulfamethoxazole-trimethoprim [Bactrim DS] 800-160 mg tablet 1 tab PO Q12H Qty: 23 RF: 0 Continued lisinopril 40 mg tablet 40 mg PO DAILY RF: 0 clonidine HCl 0.1 mg Tablet 0.1 mg PO BID RF: 0 hydrochlorothiazide 50 mg tablet 50 mg PO DAILY RF: 0 hydrocodone-acetaminophen 5-325 mg tablet 1 tab PO Q4H PRN (Reason: Pain) RF: 0 meloxicam 15 mg tablet 15 mg PO DAILY RF: 0 leflunomide 20 mg tablet 20 mg PO DAILY RF: 0 spironolactone 25 mg Tablet 25 mg PO DAILY RF: 0 omeprazole 20 mg capsule,delayed release(DR/EC) 20 mg PO BID RF: 0 albuterol sulfate [Ventolin HFA] 90 mcg/actuation Hfa Aerosol Inhaler 2 puff Inhalation Q4H PRN (Reason: Shortness Of Breath Or Wheezing) RF: 0 nabumetone 500 mg tablet 500 mg PO BID RF: 0 cholecalciferol (vitamin D3) 1,000 unit Capsule 1,000 unit PO DAILY RF: 0 cholestyramine (with sugar) 4 gram powder 1 packet PO DAILY RF: 0 abatacept 125 mg/mL syringe 125 mg subcut WK RF: 0 fluticasone-vilanterol 200-25 mcg/dose blister with device 1 puff Inhalation DAILY RF: 0 melatonin 5 mg Tablet 5 mg PO HS PRN (Reason: Insomnia) RF: 0 Stand-Alone Forms: [facility] [employer], [facility] Discharge Orders: Discharge Order (Routine); Ordered 10/04/18 Ordered By: Manuelito Gordon Admission Data Admit Date/Time: 10/01/18 21:40 Attending Provider: Manuelito Gordon Admit Provider: Dickson Edge Primary Care Provider: Ken Briceno III Other Providers: Handy Martinez I. ; Dickson Edge ; Andie Vargas Service: Surgical Services Other Interventions: Discharge Summary Assessment (RN) Last Done: 10/04/18 19:33 DC Date/Time DO NOT enter until pt leaves facility: 10/04/18 20:20
== END 2018-10-04 20:20 | disposition home or self-care (01) | DRG 728 ==
LOC: ED 17:51 → SUATTDRO 21:40 → 3W 21:40

== ENCOUNTER 2021-02-22 09:29 | Observation (INO) ==
[2021-02-22] MEDS ORDERED: METOPROLOL TARTRATE 1 MG/ML VIAL IV PRN (10:58)
[2021-02-22 11:10] LABS: Basophils # (auto) 0.04 K/uL (0-0.2); Basophils % (auto) 0.5 %; Eosinophils # (auto) 0.07 K/uL (0-0.5); Hematocrit (blood only) 39.9 % (42-52); Immature Granulocytes # (auto) 0.02 K/uL (0.00-0.02); Immature Granulocytes % (auto) 0.3 %; Lymphocytes # (auto) 0.75 K/uL (1.2-3.4); Lymphocytes % (auto) 10.2 %; Mean Corpuscular Hemoglobin 22.6 pg (25-34); Mean Corpuscular Hgb Conc 30.1 g/dL (32-36); Mean Corpuscular Volume 75.1 fL (80-100); Mean Platelet Volume 10.2 fL (7.4-10.4); Monocytes # (auto) 0.95 K/uL (0.11-0.59); Monocytes % (auto) 12.9 %; Neutrophils # (auto) 5.52 K/uL (1.4-6.5); Neutrophils % (auto) 75.1 %; Platelet Count 235 K/uL (130-400); RDW Coefficient of Variation 17.3 % (11.5-14.5); RDW Standard Deviation 47.2 fL (36.4-46.3); Red Blood Count 5.31 M/uL (4.7-6.1); White Blood Count 7.35 K/uL (4.8-10.8)
[2021-02-22 11:23] LABS: Partial Thromboplastin Ratio 0.9; Partial Thromboplastin Time 24.1 Seconds (21.0-31.0); Prothrombin Time 10.2 Seconds (9.0-12.0)
[2021-02-22 11:28] LABS: Alanine Aminotransferase 30 U/L (12-78); Albumin Level 3.8 gm/dl (3.4-5.0); Aspartate Aminotransferase 18 U/L (15-37); BUN Creatinine Ratio 20.8 (10-20); Blood Urea Nitrogen 16 mg/dl (7-18); Calcium 9.2 mg/dl (8.5-10.1); Carbon Dioxide 32 mmol/L (21-32); Chloride 100 mmol/L (98-107); Creatinine Clr Calc Pharmacy 126.7 ml/min; Est GFR (African American) 112.7 ml/min; Est GFR (Non-African American) 97.3 ml/min; Glucose 150 mg/dl (70-99); Magnesium 2.1 mg/dl (1.8-2.4); Potassium 3.6 mmol/L (3.5-5.1); Sodium 135 mmol/L (136-145)
--- NOTE | 2021-02-22 11:30 | XRay Report ---
XR chest 1V portable CLINICAL HISTORY: Dyspnea COMPARISON STUDY: Chest radiograph April 18, 2019. FINDINGS: Lung volumes are normal. Lungs are clear. There is no pneumothorax or pleural effusion. Car diac size is stable. Mediastinal contours are normal. There is no evidence for pulmonary edema. Defor mity of the right first rib is unchanged. IMPRESSION: No acute cardiopulmonary findings. ACT 112: Negative or not required by law. Electronically signed by: Rosalio Powers M.D. 02/22/2021 11:29 AM
[2021-02-22 11:37] LABS: Alkaline Phosphatase 71 U/L (45-117); Bilirubin,Total 0.4 mg/dl (0.2-1); Total Protein 7.8 gm/dl (6.4-8.2); Troponin I < 0.015 ng/ml (0-0.045)
[2021-02-22 12:26] LABS: Appearance Urine Clear (Clear); Bilirubin Urine Negative (Negative); Blood Urine Negative (Negative); Color Urine Yellow; Glucose Urine UA Negative (Negative); Ketones Urine Negative (Negative); Leukocyte Esterase Urine Negative (Negative); Nitrite Urine Negative (Negative); Protein Urine Negative (Negative); Specific Gravity Urine 1.008 (1.000-1.030); Urobilinogen Urine Negative (Negative)
--- NOTE | 2021-02-22 14:01 | Electrocardiogram Report ---
Test Reason : Blood Pressure : / mmHG Vent. Rate : 099 BPM Atrial Rate : 096 BPM P-R Int : 000 ms QRS Dur : 088 ms QT Int : 348 ms P-R-T Axes : 000 -28 018 degrees QTc Int : 446 ms Atrial fibrillation Abnormal ECG When compared with ECG of 31-OCT-2015 19:07, Atrial fibrillation has replaced Sinus rhythm Confirmed by Max Puga ([id number]) on 02/22/2021 2:01:12 PM Referred By: Ken Briceno Confirmed By:Max Puga
--- NOTE | 2021-02-22 14:38 | History & Physical Report ---
Date of Service February 22, 2021 Assessment & Plan (1) Atrial fibrillation: Plan: New onset atrial most likely cause for patient feeling "off" as well as decrease in exercise tolerance and SOB. Patient is rate controlled. -check TSH -check Lyme -Repeat troponin to document trend -Check echo -Cardiology consultation appreciated -Lovenox 1mg/kg BID for anticoagulation -Start Metroprolol 25mg po BID (2) HTN (hypertension): Plan: Chronic. Mildly elevated -Continue HCTZ -Continue Lisinopril -Initiate Metoprolol as above -Continue K repletion (3) Hyperlipidemia: Plan: Chronic -Continue Zetia 10mg po daily (4) Rheumatoid arthritis: Plan: Chronic -Continue Prednisone 5mg po daily (5) GERD (gastroesophageal reflux disease): Plan: Chronic -Continue Protonix (6) Sinus infection: Plan: Patient on Augmentin since 02/19 for presumed sinus infection. Will complete course x 5 days Plan: F/E/N - Heplock. K repletion as above. Heart healthy diet as tolerated Ppx - Lovenox BID Code - Full Dispo - Admit to medical with telemetry History of Present Illness Chief Complaint: fatigue Primary Care Provider: Ken Briceno MD Vinay Mendez is a pleasant 60yo male with history of HTN, HLP, RA and LINO presenting with one week of feeling "off". He reports occasional chest tightness, decreased exercise tolerance, CRUZ and some mild SOB at rest. Patient did some housework yesterday after which he became SOB and dizzy. He took a nap for 2-3 hours then felt better. He called [facility] with his symptoms and was instructed to come to the ER. Patient denies history of CAD, no prior stents or arrhythmias. He had a stress test 25+ years ago which was unremarkable. Patient has had both Covid vaccines Patient had a few drinks this weekend but did not drink to excess He denies fever, chills, cough, orthopnea, weight gain or edema ER Course: Metoprolol Allergies Allergy/AdvReac Type Severity Reaction Status Date / Time amlodipine Allergy Unknown UNKNOWN Verified 01/22/21 15:04 methotrexate Allergy Unknown . Verified 01/22/21 15:04 Home Medications Medication Instructions Recorded Confirmed Type abatacept 125 mg/mL subcutaneous 125 mg SUBCUT WK 10/01/18 02/22/21 History syringe leflunomide 20 mg tablet 20 mg PO DAILY 10/01/18 02/22/21 History loratadine 10 mg tablet 10 mg PO DAILY PRN tab 05/13/19 02/22/21 History prednisone 5 mg tablet 5 mg PO DAILY #30 tab 05/13/19 02/22/21 History celecoxib 200 mg capsule 200 mg PO DAILY 02/05/20 02/22/21 History omeprazole 20 mg capsule,delayed 20 mg PO BID #180 cap 04/28/20 02/22/21 Rx release hydrochlorothiazide 50 mg tablet 50 mg PO DAILY #90 tab 07/15/20 02/22/21 Rx lisinopril 40 mg tablet 40 mg PO DAILY #90 tab 07/22/20 02/22/21 Rx potassium chloride 15 mEq 15 meq PO BID #180 tab 09/30/20 02/22/21 Rx tablet,extended release(part/cryst) (Klor-Con M) acetaminophen 650 mg 650 - 1,300 mg PO DAILY PRN tab 11/26/20 02/22/21 History tablet,extended release (Tylenol Arthritis Pain) cholecalciferol (vitamin D3) 50 50 mcg PO DAILY 11/26/20 02/22/21 History mcg (2,000 unit) capsule cyanocobalamin (vitamin B-12) 1,000 mcg PO DAILY 11/26/20 02/22/21 History 1,000 mcg capsule doxepin 10 mg capsule 10 mg PO HS PRN cap 11/26/20 02/22/21 History Advair Diskus 250 mcg-50 mcg/dose 1 inh INHALATION Q12H #3 inhaler NS 11/29/20 02/22/21 Rx powder for inhalation (fluticasone propion-salmeterol) methylprednisolone 4 mg tablets in See Rx Instructions .ROUTE 01/22/21 02/22/21 Rx a dose pack (Medrol (Tru)) .COMPLEX #21 ea ezetimibe 10 mg tablet 10 mg PO DAILY #90 tab 02/04/21 02/22/21 Rx hydrocodone 5 mg-acetaminophen 325 1 tab PO .COMPLEX PRN #40 tab 02/05/21 02/22/21 Rx mg tablet amoxicillin 875 mg-potassium 1 tab PO BID 02/22/21 02/22/21 History clavulanate 125 mg tablet (Augmentin) Past Med/Surg History Medical History (Updated 02/22/21 @ 19:40 by Melvina Boudreaux DO) Abscess of scrotum GERD (gastroesophageal reflux disease) HTN (hypertension) Hyperlipidemia Methotrexate adverse reaction Psoriatic arthritis Rheumatoid arthritis Sinusitis Sleep apnea Surgical History History of lumbar laminectomy History of surgery on arm Hx of cholecystectomy Hx of elbow surgery Hx of shoulder surgery Family History Father Cardiac disorder Sister Breast cancer Mother Breast cancer Other Diabetes Hypertension Social History (Updated 01/22/21 @ 15:08 by Concha Dior MA) Smoking Status: Never smoker Second Hand Exposure: No; Do You Dip or Chew Tobacco: No; Tobacco Cessation Education Requested by Patient: No Hx Alcohol Use: Yes Alcohol type: beer Hx Substance Use: No Preferred Language: Croatian Communication Ability: Effective Pattern Assembler Required: No Beliefs That Will Affect Care: None Current Living Situation: Alone and Other Current Living Situation Comment: at home, independently. with dogs. current occupational status: retired Other Information That Helps Us Care for You: No Feels Safe at Home: Yes Safety Concerns: Feels Safe At This Time Assistive Devices: Contacts and CPAP Review of Systems Review of Systems: General: Patient denies fevers, chills, malaise, weight loss or weight gain Skin: Patient denies bruising, bleeding or rash HEENT: Patient denies headache, visual changes, sore throat, difficulty swallowing, stiff neck Cardio: Patient denies palpitations, lightheadedness Pulmonary: Patient denies cough, wheeze GI: Patient denies abdominal pain, nausea, vomiting, diarrhea, constipation : Patient denies dysuria, frequency, urgency or hematuria Musculoskeletal: Patient denies swelling or pain of the joints, edema Neuro: Patient denies numbness, tingling, weakness or falls Psych: Patient denies depression, anxiety Physical Exam Physical Exam: General: patient resting comfortably, NAD, non-toxic in appearance, AA&O x 4 Skin: warm, dry, intact, no rashes or lesions HEENT: NC/AT, PERRL, EOMI, anicteric sclera, conjunctiva without injection, external ear normal to inspection and nontender, nares patent, moist mucus membranes, dentition intact, no oropharyngeal lesions, neck supple, trachea midline, no LAD, no thyromegaly, no JVD Heart: +S1/S2, regular, no m/r/g Lungs: equal air entry bilaterally, no rales/rhonchi/wheezes Abd: +BS, soft, NT/ND, no masses/organomegaly/ascites Ext: warm, 2+ pulses in UE/LE bilaterally, no clubbing/cyanosis or edema Neuro: nonfocal, patient AA&O x 4, speech intact, no facial droop, moving all extremities on command with equal strength 5/5 Results & Data Results & Data ([facility]) Vital Signs (Past 12 Hours) Vital Signs Temp Pulse Resp BP Pulse Ox 02/22/21 13:30 92 H 23 119/82 96 02/22/21 13:00 93 H 25 H 136/94 94 02/22/21 12:51 91 H 25 H 129/86 94 02/22/21 12:43 100 H 20 134/85 97 02/22/21 12:41 103 H 132/95 02/22/21 12:30 99 H 16 132/95 96 02/22/21 12:04 17 138/91 95 02/22/21 11:30 22 134/83 94 02/22/21 11:04 104 H 20 97 02/22/21 11:01 102 H 18 137/103 H 96 02/22/21 10:56 109 H 18 02/22/21 09:35 36.5 C 100 H 18 144/86 H 95 Laboratory Results Laboratory Results WBC 7.35 K/uL (4.8-10.8) 02/22/21 11:00 RBC 5.31 M/uL (4.7-6.1) 02/22/21 11:00 Hgb 12.0 g/dL (14.0-18.0) L 02/22/21 11:00 Hct 39.9 % (42-52) L 02/22/21 11:00 MCV 75.1 fL (80-100) L 02/22/21 11:00 MCH 22.6 pg (25-34) L 02/22/21 11:00 MCHC 30.1 g/dL (32-36) L 02/22/21 11:00 RDW Std Deviation 47.2 fL (36.4-46.3) H 02/22/21 11:00 RDW Coeff of Elvia 17.3 % (11.5-14.5) H 02/22/21 11:00 Plt Count 235 K/uL (130-400) 02/22/21 11:00 MPV 10.2 fL (7.4-10.4) 02/22/21 11:00 Immature Gran % (Auto) 0.3 % 02/22/21 11:00 Neut % (Auto) 75.1 % 02/22/21 11:00 Lymph % (Auto) 10.2 % 02/22/21 11:00 [place] % (Auto) 12.9 % 02/22/21 11:00 Eos % (Auto) 1.0 % 02/22/21 11:00 Baso % (Auto) 0.5 % 02/22/21 11:00 Neut # (Auto) 5.52 K/uL (1.4-6.5) 02/22/21 11:00 Lymph # (Auto) 0.75 K/uL (1.2-3.4) L 02/22/21 11:00 [place] # (Auto) 0.95 K/uL (0.11-0.59) H 02/22/21 11:00 Eos # (Auto) 0.07 K/uL (0-0.5) 02/22/21 11:00 Baso # (Auto) 0.04 K/uL (0-0.2) 02/22/21 11:00 Immature Gran # (Auto) 0.02 K/uL (0.00-0.02) 02/22/21 11:00 PT 10.2 Seconds (9.0-12.0) 02/22/21 11:00 INR 1.0 (0.9-1.1) 02/22/21 11:00 APTT 24.1 Seconds (21.0-31.0) 02/22/21 11:00 PTT Ratio 0.9 02/22/21 11:00 Sodium 135 mmol/L (136-145) L 02/22/21 11:00 Potassium 3.6 mmol/L (3.5-5.1) 02/22/21 11:00 Chloride 100 mmol/L (98-107) 02/22/21 11:00 Carbon Dioxide 32 mmol/L (21-32) 02/22/21 11:00 Anion Gap 3.0 (3-11) 02/22/21 11:00 BUN 16 mg/dl (7-18) 02/22/21 11:00 Creatinine 0.77 mg/dl (0.6-1.4) 02/22/21 11:00 Est Cr Clr Drug Dosing 126.7 ml/min 02/22/21 11:00 Est GFR ( Amer) 112.7 ml/min 02/22/21 11:00 Est GFR (Non-Af Amer) 97.3 ml/min 02/22/21 11:00 BUN/Creatinine Ratio 20.8 (10-20) H 02/22/21 11:00 Glucose 150 mg/dl (70-99) H 02/22/21 11:00 Calcium 9.2 mg/dl (8.5-10.1) 02/22/21 11:00 Phosphorus 3.1 mg/dl (2.5-4.9) 02/22/21 11:00 Magnesium 2.1 mg/dl (1.8-2.4) 02/22/21 11:00 Total Bilirubin 0.4 mg/dl (0.2-1) 02/22/21 11:00 AST 18 U/L (15-37) 02/22/21 11:00 ALT 30 U/L (12-78) 02/22/21 11:00 Alkaline Phosphatase 71 U/L (45-117) 02/22/21 11:00 Troponin I < 0.015 ng/ml (0-0.045) 02/22/21 11:00 Total Protein 7.8 gm/dl (6.4-8.2) 02/22/21 11:00 Albumin 3.8 gm/dl (3.4-5.0) 02/22/21 11:00 Globulin 4.0 gm/dl (2.5-4.0) 02/22/21 11:00 Albumin/Globulin Ratio 1.0 (0.9-2) 02/22/21 11:00 TSH 0.280 uIu/ml (0.300-4.500) L 02/22/21 11:00 Free T4 0.97 ng/dl (0.8-1.6) 02/22/21 11:00 Urine Color Yellow 02/22/21 12:00 Urine Appearance Clear (Clear) 02/22/21 12:00 Urine pH 7.0 (4.5-7.5) 02/22/21 12:00 Ur Specific [place] 1.008 (1.000-1.030) 02/22/21 12:00 Urine Protein Negative (Negative) 02/22/21 12:00 Urine Glucose (UA) Negative (Negative) 02/22/21 12:00 Urine Ketones Negative (Negative) 02/22/21 12:00 Urine Blood Negative (Negative) 02/22/21 12:00 Urine Nitrite Negative (Negative) 02/22/21 12:00 Urine Bilirubin Negative (Negative) 02/22/21 12:00 Urine Urobilinogen Negative (Negative) 02/22/21 12:00 Ur Leukocyte Esterase Negative (Negative) 02/22/21 12:00 Lyme Disease IgG Ab Negative (Negative) 02/22/21 11:00 Lyme Disease IgM Ab Negative (Negative) 02/22/21 11:00 COVID-19 Eval Order Covid19 at [facility] 02/22/21 11:35 SARS-CoV-2 (PCR) NEGATIVE (Negative) 02/22/21 11:35 Impressions Chest X-Ray 02/22/21 10:54 XR chest 1V portable CLINICAL HISTORY: Dyspnea COMPARISON STUDY: Chest radiograph April 18, 2019. FINDINGS: Lung volumes are normal. Lungs are clear. There is no pneumothorax or pleural effusion. Cardiac size is stable. Mediastinal contours are normal. There is no evidence for pulmonary edema. Deformity of the right first rib is unchanged. IMPRESSION: No acute cardiopulmonary findings. ACT 112: Negative or not required by law. Electronically signed by: Rosalio Powers M.D. 02/22/2021 11:29 AM ECG Additional Comments: Atrial fibrillation Abnormal ECG When compared with ECG of 31-OCT-2015 19:07, Atrial fibrillation has replaced Sinus rhythm Confirmed by Max Puga ([id number]) on 02/22/2021 2:01:12 PM Code Status & VTE Plan VTE Prophylaxis Plan VTE Prophylaxis will be ordered: Yes PG Care Time/CCT Total # of Minutes Spent Total Time Spent with Patient: Total time spent is greater than 50% in coordination of care (as documented) at patient's floor/unit and/or counseling patient: Coding Level of Care Code 18189 Initial Inpt Care Lvl 2 Diagnoses HTN (hypertension) I10 Hyperlipidemia E78.5 Rheumatoid arthritis M06.9 GERD (gastroesophageal reflux disease) K21.9 Atrial fibrillation I48.91 Sinus infection J32.9
--- NOTE | 2021-02-22 16:00 | XCELERA ---
[id number]
--- NOTE | 2021-02-22 16:29 | Emergency Department Note ---
History of Present Illness General Chief complaint: Shortness of Breath/Dyspnea Stated complaint: SOB, VERTIGO, HEADACHE Source: patient and RN notes reviewed Mode of arrival: ambulatory Limitations: no limitations History of Present Illness Provider complaint: Shortness of breath, fatigue x1 week This patient is a 60-year-old male who presents emergency department with complaints of shortness of breath and fatigue x1 week. He does believe it has worsened, particularly with exertion. He states he has not been able to do anything remotely exertional without becoming significantly winded. Last evening he became fairly lightheaded and nearly collapsed, hitting his forearm against the countertop. He denies any significant discomfort but did sustain a superficial abrasion/laceration. He states his dogs made a mess with the garbage and he was attempting to clean it up. He was unable to clean without becoming dyspneic. He does complain of some mild chest discomfort when he is exertional. He denies any recent fevers, chills, abdominal pain, vomiting or diarrhea. Home Medications Medication Instructions Recorded Confirmed Type abatacept 125 mg/mL subcutaneous 125 mg SUBCUT WK 10/01/18 02/22/21 History syringe leflunomide 20 mg tablet 20 mg PO DAILY 10/01/18 02/22/21 History loratadine 10 mg tablet 10 mg PO DAILY PRN tab 05/13/19 02/22/21 History prednisone 5 mg tablet 5 mg PO DAILY #30 tab 05/13/19 02/22/21 History omeprazole 20 mg capsule,delayed 20 mg PO BID #180 cap 04/28/20 02/22/21 Rx release hydrochlorothiazide 50 mg tablet 50 mg PO DAILY #90 tab 07/15/20 02/22/21 Rx lisinopril 40 mg tablet 40 mg PO DAILY #90 tab 07/22/20 02/22/21 Rx potassium chloride 15 mEq 15 meq PO BID #180 tab 09/30/20 02/22/21 Rx tablet,extended release(part/cryst) (Klor-Con M) acetaminophen 650 mg 650 - 1,300 mg PO DAILY PRN tab 11/26/20 02/22/21 History tablet,extended release (Tylenol Arthritis Pain) cholecalciferol (vitamin D3) 50 50 mcg PO DAILY 11/26/20 02/22/21 History mcg (2,000 unit) capsule cyanocobalamin (vitamin B-12) 1,000 mcg PO DAILY 11/26/20 02/22/21 History 1,000 mcg capsule doxepin 10 mg capsule 10 mg PO HS PRN cap 11/26/20 02/22/21 History Advair Diskus 250 mcg-50 mcg/dose 1 inh INHALATION Q12H #3 inhaler NS 11/29/20 02/22/21 Rx powder for inhalation (fluticasone propion-salmeterol) methylprednisolone 4 mg tablets in See Rx Instructions .ROUTE 01/22/21 02/22/21 Rx a dose pack (Medrol (Tru)) .COMPLEX #21 ea ezetimibe 10 mg tablet 10 mg PO DAILY #90 tab 02/04/21 02/22/21 Rx hydrocodone 5 mg-acetaminophen 325 1 tab PO .COMPLEX PRN #40 tab 02/05/21 02/22/21 Rx mg tablet amoxicillin 875 mg-potassium 1 tab PO BID 02/22/21 02/22/21 History clavulanate 125 mg tablet (Augmentin) metoprolol tartrate 75 mg tablet 75 mg PO BID 30 Days #60 tab 02/24/21 Rx rivaroxaban 20 mg tablet (Xarelto) 20 mg PO DAILY 30 Days #30 tab 02/24/21 Rx Allergies Allergy/AdvReac Type Severity Reaction Status Date / Time amlodipine Allergy Unknown UNKNOWN Verified 01/22/21 15:04 methotrexate Allergy Unknown . Verified 01/22/21 15:04 Past Med/Surg History Medical History Abscess of scrotum GERD (gastroesophageal reflux disease) HTN (hypertension) Hyperlipidemia Methotrexate adverse reaction Psoriatic arthritis Rheumatoid arthritis Sinusitis Sleep apnea Surgical History History of lumbar laminectomy History of surgery on arm Hx of cholecystectomy Hx of elbow surgery Hx of shoulder surgery Family History Father Cardiac disorder Sister Breast cancer Mother Breast cancer Other Diabetes Hypertension Social History Smoking Status: Never smoker Second Hand Exposure: No; Hx Alcohol Use: Yes Alcohol type: beer Hx Substance Use: No Preferred Language: Citizen Of [place] Communication Ability: Effective Consumer Loan Manager Required: No Beliefs That Will Affect Care: None Current Living Situation: Alone and Other Current Living Situation Comment: at home, independently. with dogs. current occupational status: retired Feels Safe at Home: Yes Assistive Devices: CPAP Review of Systems See HPI for pertinent positives & negatives. and A total of 10 systems reviewed and were otherwise negative Physical Exam Vital Signs Vital Signs - 24 hr 02/22/21 09:35 02/22/21 10:56 02/22/21 11:01 Temperature 36.5 C Temperature Source Temporal Artery Scan Pulse Rate 100 H 109 H 102 H Pulse Rate from SpO2 Sensor 104 H Pulse Rhythm Respiratory Rate 18 18 18 Blood Pressure 144/86 H 137/103 H Blood Pressure Mean 105 114 Pulse Oximetry 95 96 Oxygen Delivery Method Room Air Sepsis Recent Fever Within 48 Hours No Sepsis New/Unexplained Change in Mental Status No Sepsis Action Taken by Nursing No Action Required 02/22/21 11:04 02/22/21 11:30 02/22/21 12:04 Temperature Temperature Source Pulse Rate 104 H Pulse Rate from SpO2 Sensor 97 H 89 Pulse Rhythm Regular Respiratory Rate 20 22 17 Blood Pressure 134/83 138/91 Blood Pressure Mean 100 106 Pulse Oximetry 97 94 95 Oxygen Delivery Method Room Air Sepsis Recent Fever Within 48 Hours Sepsis New/Unexplained Change in Mental Status Sepsis Action Taken by Nursing 02/22/21 12:30 02/22/21 12:41 02/22/21 12:43 Temperature Temperature Source Pulse Rate 99 H 103 H 100 H Pulse Rate from SpO2 Sensor 98 H 109 H Pulse Rhythm Respiratory Rate 16 20 Blood Pressure 132/95 132/95 134/85 Blood Pressure Mean 107 101 Pulse Oximetry 96 97 Oxygen Delivery Method Sepsis Recent Fever Within 48 Hours Sepsis New/Unexplained Change in Mental Status Sepsis Action Taken by Nursing 02/22/21 12:51 02/22/21 13:00 02/22/21 13:30 Temperature Temperature Source Pulse Rate 91 H 93 H 92 H Pulse Rate from SpO2 Sensor 92 H 100 H 91 H Pulse Rhythm Respiratory Rate 25 H 25 H 23 Blood Pressure 129/86 136/94 119/82 Blood Pressure Mean 100 108 94 Pulse Oximetry 94 94 96 Oxygen Delivery Method Sepsis Recent Fever Within 48 Hours Sepsis New/Unexplained Change in Mental Status Sepsis Action Taken by Nursing 02/22/21 14:00 02/22/21 14:50 02/22/21 15:00 Temperature Temperature Source Pulse Rate 93 H 101 H 92 H Pulse Rate from SpO2 Sensor 88 Pulse Rhythm Respiratory Rate 21 22 20 Blood Pressure 135/92 130/97 130/97 Blood Pressure Mean 106 108 108 Pulse Oximetry 97 Oxygen Delivery Method Sepsis Recent Fever Within 48 Hours Sepsis New/Unexplained Change in Mental Status Sepsis Action Taken by Nursing Vital signs reviewed. General: Chronically ill-appearing 60-year-old male, in no significant distress. HEENT: No scleral icterus, PERRLA, neck supple. Atraumatic. Cardiovascular: Rapid and irregular, no extra sounds Pulmonary: Clear to auscultation bilaterally, normal work of breathing. Abdomen: Soft, obese, nontender, nondistended, positive bowel sounds. Musculoskeletal: Atraumatic, minimal peripheral edema. Neurologic: Patient awake alert and oriented x 3 Skin: Warm, dry, no rash Course Administered Medications Discontinued Medications Amoxicillin/Clavulanate Potassium (Amoxicillin/Clavulanate 875 Mg Tab) 1 tab PO BID PETE Stop: 02/24/21 21:01 Last Admin: 02/24/21 07:19 Dose: 1 tab Documented by: [id number] Admin: 02/23/21 20:09 Dose: 1 tab Documented by: [id number] Admin: 02/23/21 08:08 Dose: 1 tab Documented by: [id number] Admin: 02/22/21 20:58 Dose: 1 tab Documented by: [id number] Calcium Carbonate (Calcium Carbonate 500 Mg Chewable Tab) 1,500 mg PO Q12H PRN PRN Reason: Indigestion Stop: 03/25/21 01:38 Last Admin: 02/23/21 06:27 Dose: 1,500 mg Documented by: [id number] Doxepin HCl (Doxepin Hcl 10 Mg Capsule) 10 mg PO HS PRN PRN Reason: sleep Stop: 03/24/21 17:20 Last Admin: 02/23/21 01:35 Dose: 10 mg Documented by: [id number] Ezetimibe (Ezetimibe 10 Mg Tablet) 10 mg PO DAILY PETE Stop: 03/25/21 08:59 Last Admin: 02/24/21 07:19 Dose: 10 mg Documented by: [id number] Admin: 02/23/21 08:07 Dose: 10 mg Documented by: [id number] Enoxaparin Sodium (Enoxaparin Inj 120 Mg/0.8 Ml Syr) 120 mg SQ Q12H PETE Stop: 03/24/21 17:29 Last Admin: 02/24/21 05:53 Dose: 120 mg Documented by: [id number] Admin: 02/23/21 17:46 Dose: 120 mg Documented by: [id number] Admin: 02/23/21 06:24 Dose: 120 mg Documented by: [id number] Admin: 02/22/21 18:35 Dose: 120 mg Documented by: [id number] Fluticasone/Vilanterol (Fluticasone/Vilanterol 200/25mcg 14 Puffs/Inhaler) 1 puffs INH DAILY PETE Stop: 03/25/21 08:59 Last Admin: 02/24/21 07:19 Dose: 1 puffs Documented by: [id number] Admin: 02/23/21 08:06 Dose: 1 puffs Documented by: [id number] Hydrochlorothiazide (Hydrochlorothiazide 25 Mg Tab) 50 mg PO DAILY [facility] Stop: 03/25/21 08:59 Last Admin: 02/24/21 07:20 Dose: 50 mg Documented by: [id number] Admin: 02/23/21 08:07 Dose: 50 mg Documented by: [id number] Lisinopril (Lisinopril 40 Mg Tab) 40 mg PO DAILY [facility] Stop: 03/25/21 08:59 Last Admin: 02/24/21 07:19 Dose: 40 mg Documented by: [id number] Admin: 02/23/21 08:09 Dose: 40 mg Documented by: [id number] Metoprolol Tartrate (Metoprolol Tartrate 1 Mg/Ml Vial) 5 mg IV Q5M PRN PRN Reason: Tachycardia Stop: 03/24/21 10:57 Last Admin: 02/22/21 12:41 Dose: 5 mg Documented by: [id number] Metoprolol Tartrate (Metoprolol Tartrate 25 Mg Tab) 25 mg PO BID [facility] Stop: 03/24/21 20:59 Last Admin: 02/23/21 08:07 Dose: 25 mg Documented by: [id number] Admin: 02/22/21 20:58 Dose: 25 mg Documented by: [id number] Metoprolol Tartrate (Metoprolol Tartrate 50 Mg Tab) 50 mg PO BID [facility] Stop: 03/25/21 20:59 Last Admin: 02/24/21 07:20 Dose: 50 mg Documented by: [id number] Admin: 02/23/21 20:10 Dose: 50 mg Documented by: [id number] Metoprolol Tartrate (Metoprolol Tartrate 25 Mg Tab) 75 mg PO BID PETE Stop: 03/26/21 08:59 Last Admin: 02/24/21 08:35 Dose: Not Given Documented by: [id number] Metoprolol Tartrate (Metoprolol Tartrate 25 Mg Tab) 25 mg PO NOW STA Stop: 02/24/21 09:24 Last Admin: 02/24/21 09:53 Dose: 25 mg Documented by: [id number] Miscellaneous (Leflunomide: Order Awaiting Action) 1 ea N/A QS PETE Stop: 03/25/21 00:00 Last Admin: 02/24/21 06:54 Dose: Not Given Documented by: [id number] Admin: 02/24/21 02:41 Dose: 1 ea Documented by: [id number] Admin: 02/23/21 15:28 Dose: Not Given Documented by: [id number] Admin: 02/23/21 08:09 Dose: Not Given Documented by: [id number] Admin: 02/23/21 00:49 Dose: Not Given Documented by: [id number] Pantoprazole Sodium (Pantoprazole 40 Mg Tab) 40 mg PO DAILY [facility] Stop: 03/25/21 08:59 Last Admin: 02/24/21 07:20 Dose: 40 mg Documented by: [id number] Admin: 02/23/21 08:08 Dose: 40 mg Documented by: [id number] Potassium Chloride (Potassium Chloride Crtab 20 Meq Tabcr) 20 meq PO QAM [facility] Stop: 03/25/21 08:59 Last Admin: 02/24/21 07:19 Dose: 20 meq Documented by: [id number] Admin: 02/23/21 08:08 Dose: 20 meq Documented by: [id number] Potassium Chloride (Potassium Chloride 20 Meq/15 Ml Udc) 40 meq PO NOW STA Stop: 02/24/21 07:53 Last Admin: 02/24/21 08:35 Dose: 40 meq Documented by: [id number] Prednisone (Prednisone 5 Mg Tab) 5 mg PO DAILY [facility] Stop: 03/25/21 08:59 Last Admin: 02/24/21 07:20 Dose: 5 mg Documented by: [id number] Admin: 02/23/21 08:09 Dose: 5 mg Documented by: [id number] Medical Decision Making Differential Diagnosis Premature contractions, electrolyte abnormality, cardiac dysrhythmia, thyroid dysfunction, pulmonary embolism, infection, gastrointestinal, as well as other pathologies. Medical Records Attestation: I reviewed the patient's medical records. Home Medications Current Medication List: was personally reviewed by me Laboratory Data Attestation: I reviewed the patient's lab results. Result diagrams: 02/23/21 07:44 02/23/21 07:44 Lab Results 02/22/21 02/22/21 02/22/21 Range/Units 11:00 11:00 11:00 WBC 7.35 (4.8-10.8) K/uL RBC 5.31 (4.7-6.1) M/uL Hgb 12.0 L (14.0-18.0) g/dL Hct 39.9 L (42-52) % MCV 75.1 L (80-100) fL MCH 22.6 L (25-34) pg MCHC 30.1 L (32-36) g/dL RDW Std Deviation 47.2 H (36.4-46.3) fL RDW Coeff of Elvia 17.3 H (11.5-14.5) % Plt Count 235 (130-400) K/uL MPV 10.2 (7.4-10.4) fL Immature Gran % (Auto) 0.3 % Neut % (Auto) 75.1 % Lymph % (Auto) 10.2 % [place] % (Auto) 12.9 % Eos % (Auto) 1.0 % Baso % (Auto) 0.5 % Neut # (Auto) 5.52 (1.4-6.5) K/uL Lymph # (Auto) 0.75 L (1.2-3.4) K/uL [place] # (Auto) 0.95 H (0.11-0.59) K/uL Eos # (Auto) 0.07 (0-0.5) K/uL Baso # (Auto) 0.04 (0-0.2) K/uL Immature Gran # (Auto) 0.02 (0.00-0.02) K/uL PT 10.2 (9.0-12.0) Seconds INR 1.0 (0.9-1.1) APTT 24.1 (21.0-31.0) Seconds PTT Ratio 0.9 Sodium 135 L (136-145) mmol/L Potassium 3.6 (3.5-5.1) mmol/L Chloride 100 (98-107) mmol/L Carbon Dioxide 32 (21-32) mmol/L Anion Gap 3.0 (3-11) BUN 16 (7-18) mg/dl Creatinine 0.77 (0.6-1.4) mg/dl Est Cr Clr Drug Dosing 126.7 ml/min Est GFR ( Amer) 112.7 ml/min Est GFR (Non-Af Amer) 97.3 ml/min BUN/Creatinine Ratio 20.8 H (10-20) Glucose 150 H (70-99) mg/dl Calcium 9.2 (8.5-10.1) mg/dl Phosphorus (2.5-4.9) mg/dl Magnesium 2.1 (1.8-2.4) mg/dl Total Bilirubin 0.4 (0.2-1) mg/dl AST 18 (15-37) U/L ALT 30 (12-78) U/L Alkaline Phosphatase 71 (45-117) U/L Troponin I < 0.015 (0-0.045) ng/ml Total Protein 7.8 (6.4-8.2) gm/dl Albumin 3.8 (3.4-5.0) gm/dl Globulin 4.0 (2.5-4.0) gm/dl Albumin/Globulin Ratio 1.0 (0.9-2) TSH (0.300-4.500) uIu/ml Free T4 (0.8-1.6) ng/dl Urine Color Urine Appearance (Clear) Urine pH (4.5-7.5) Ur Specific [place] (1.000-1.030) Urine Protein (Negative) Urine Glucose (UA) (Negative) Urine Ketones (Negative) Urine Blood (Negative) Urine Nitrite (Negative) Urine Bilirubin (Negative) Urine Urobilinogen (Negative) Ur Leukocyte Esterase (Negative) Lyme Disease IgG Ab (Negative) Lyme Disease IgM Ab (Negative) COVID-19 Eval Order SARS-CoV-2 (PCR) (Negative) 02/22/21 02/22/21 02/22/21 Range/Units 11:00 11:00 11:35 WBC (4.8-10.8) K/uL RBC (4.7-6.1) M/uL Hgb (14.0-18.0) g/dL Hct (42-52) % MCV (80-100) fL MCH (25-34) pg MCHC (32-36) g/dL RDW Std Deviation (36.4-46.3) fL RDW Coeff of Elvia (11.5-14.5) % Plt Count (130-400) K/uL MPV (7.4-10.4) fL Immature Gran % (Auto) % Neut % (Auto) % Lymph % (Auto) % [place] % (Auto) % Eos % (Auto) % Baso % (Auto) % Neut # (Auto) (1.4-6.5) K/uL Lymph # (Auto) (1.2-3.4) K/uL [place] # (Auto) (0.11-0.59) K/uL Eos # (Auto) (0-0.5) K/uL Baso # (Auto) (0-0.2) K/uL Immature Gran # (Auto) (0.00-0.02) K/uL PT (9.0-12.0) Seconds INR (0.9-1.1) APTT (21.0-31.0) Seconds PTT Ratio Sodium (136-145) mmol/L Potassium (3.5-5.1) mmol/L Chloride (98-107) mmol/L Carbon Dioxide (21-32) mmol/L Anion Gap (3-11) BUN (7-18) mg/dl Creatinine (0.6-1.4) mg/dl Est Cr Clr Drug Dosing ml/min Est GFR ( Amer) ml/min Est GFR (Non-Af Amer) ml/min BUN/Creatinine Ratio (10-20) Glucose (70-99) mg/dl Calcium (8.5-10.1) mg/dl Phosphorus 3.1 (2.5-4.9) mg/dl Magnesium (1.8-2.4) mg/dl Total Bilirubin (0.2-1) mg/dl AST (15-37) U/L ALT (12-78) U/L Alkaline Phosphatase (45-117) U/L Troponin I (0-0.045) ng/ml Total Protein (6.4-8.2) gm/dl Albumin (3.4-5.0) gm/dl Globulin (2.5-4.0) gm/dl Albumin/Globulin Ratio (0.9-2) TSH 0.280 L (0.300-4.500) uIu/ml Free T4 0.97 (0.8-1.6) ng/dl Urine Color Urine Appearance (Clear) Urine pH (4.5-7.5) Ur Specific [place] (1.000-1.030) Urine Protein (Negative) Urine Glucose (UA) (Negative) Urine Ketones (Negative) Urine Blood (Negative) Urine Nitrite (Negative) Urine Bilirubin (Negative) Urine Urobilinogen (Negative) Ur Leukocyte Esterase (Negative) Lyme Disease IgG Ab Negative (Negative) Lyme Disease IgM Ab Negative (Negative) COVID-19 Eval Order Covid19 at [facility] SARS-CoV-2 (PCR) (Negative) 02/22/21 02/22/21 Range/Units 11:35 12:00 WBC (4.8-10.8) K/uL RBC (4.7-6.1) M/uL Hgb (14.0-18.0) g/dL Hct (42-52) % MCV (80-100) fL MCH (25-34) pg MCHC (32-36) g/dL RDW Std Deviation (36.4-46.3) fL RDW Coeff of Elvia (11.5-14.5) % Plt Count (130-400) K/uL MPV (7.4-10.4) fL Immature Gran % (Auto) % Neut % (Auto) % Lymph % (Auto) % [place] % (Auto) % Eos % (Auto) % Baso % (Auto) % Neut # (Auto) (1.4-6.5) K/uL Lymph # (Auto) (1.2-3.4) K/uL [place] # (Auto) (0.11-0.59) K/uL Eos # (Auto) (0-0.5) K/uL Baso # (Auto) (0-0.2) K/uL Immature Gran # (Auto) (0.00-0.02) K/uL PT (9.0-12.0) Seconds INR (0.9-1.1) APTT (21.0-31.0) Seconds PTT Ratio Sodium (136-145) mmol/L Potassium (3.5-5.1) mmol/L Chloride (98-107) mmol/L Carbon Dioxide (21-32) mmol/L Anion Gap (3-11) BUN (7-18) mg/dl Creatinine (0.6-1.4) mg/dl Est Cr Clr Drug Dosing ml/min Est GFR ( Amer) ml/min Est GFR (Non-Af Amer) ml/min BUN/Creatinine Ratio (10-20) Glucose (70-99) mg/dl Calcium (8.5-10.1) mg/dl Phosphorus (2.5-4.9) mg/dl Magnesium (1.8-2.4) mg/dl Total Bilirubin (0.2-1) mg/dl AST (15-37) U/L ALT (12-78) U/L Alkaline Phosphatase (45-117) U/L Troponin I (0-0.045) ng/ml Total Protein (6.4-8.2) gm/dl Albumin (3.4-5.0) gm/dl Globulin (2.5-4.0) gm/dl Albumin/Globulin Ratio (0.9-2) TSH (0.300-4.500) uIu/ml Free T4 (0.8-1.6) ng/dl Urine Color Yellow Urine Appearance Clear (Clear) Urine pH 7.0 (4.5-7.5) Ur Specific [place] 1.008 (1.000-1.030) Urine Protein Negative (Negative) Urine Glucose (UA) Negative (Negative) Urine Ketones Negative (Negative) Urine Blood Negative (Negative) Urine Nitrite Negative (Negative) Urine Bilirubin Negative (Negative) Urine Urobilinogen Negative (Negative) Ur Leukocyte Esterase Negative (Negative) Lyme Disease IgG Ab (Negative) Lyme Disease IgM Ab (Negative) COVID-19 Eval Order SARS-CoV-2 (PCR) NEGATIVE (Negative) Imaging Data Radiologist's Impression: Chest X-Ray 02/22/21 10:54 XR chest 1V portable CLINICAL HISTORY: Dyspnea COMPARISON STUDY: Chest radiograph April 18, 2019. FINDINGS: Lung volumes are normal. Lungs are clear. There is no pneumothorax or pleural effusion. Cardiac size is stable. Mediastinal contours are normal. There is no evidence for pulmonary edema. Deformity of the right first rib is unchanged. IMPRESSION: No acute cardiopulmonary findings. ACT 112: Negative or not required by law. Electronically signed by: Rosalio Powers M.D. 02/22/2021 11:29 AM ECG Data Attestation: I personally reviewed and interpreted this ECG as follows: Indication: + palpitations and + weakness Rate (beats per minute): 99 Rhythm: + atrial fibrillation ECG Intervals/blocks: + Normal QT-c ECG ST segments: + Normal ST segments ECG Findings: no PACs or no PVCs Comparison ECG Date: from (10/31/15) Change: the following changes noted (Atrial fibrillation has replaced normal sinus rhythm) Blood Pressure Blood Pressure Findings: Normal blood pressure Blood Pressure Disposition: did not require urgent referral MDM Narrative This patient was evaluated and appeared to be in no significant distress. An order for cardiac monitoring was placed in the patient is noted to be in a relatively rate controlled atrial fibrillation at approximately 105 bpm. The patient was given 5 mg of IV metoprolol when heart rate began to approach 110 bpm. Patient's laboratory work was relatively reassuring. Patient's chest x-ra y reveals no evidence of acute findings. It appears that the patient is in a new onset atrial fibrillation and therefore the hospitalist was consulted for further management. Patient was aware of the findings and plan and agreed. Impression & Plan New onset atrial fibrillation Discharge Plan Visit Data Chief Complaint: Shortness of Breath/Dyspnea Stated Complaint: SOB, VERTIGO, HEADACHE ED Provider: Gemma Armstrong Discharge Problem: New onset atrial fibrillation Patient Disposition: Admitted As Inpatient Discharge Instructions Interventions: ED Discharge Assessment Last Done: 02/22/21 17:06
[2021-02-22] MEDS ORDERED: ACETAMINOPHEN 325 MG TAB PO PRN (17:21)
[2021-02-22] MEDS ORDERED: HYDROCODONE/ACETAMOPHEN 5/325MG TAB PO PRN (17:21)
[2021-02-22] MEDS ORDERED: LORATADINE 10 MG TAB PO PRN (17:21)
[2021-02-22] MEDS ORDERED: ONDANSETRON INJ 2 MG/ML 2 ML VIAL IV PRN (17:21)
[2021-02-22] MEDS ORDERED: DOXEPIN HCL 10 MG CAPSULE PO PRN (17:21)
[2021-02-22 18:18] LABS: Phosphorus 3.1 mg/dl (2.5-4.9); Thyroid Stimulating Hormone 0.28 uIu/ml (0.300-4.500)
[2021-02-22 18:27] LABS: Lyme Ab IgG w/WB Rflx Negative (Negative); Lyme Ab IgM w/WB Rflx Negative (Negative)
[2021-02-22 18:30] LABS: T4 Free Thyroxine 0.97 ng/dl (0.8-1.6)
[2021-02-22] MEDS: ENOXAPARIN INJ 120 MG/0.8 ML SYR SQ SCH (18:35)
[2021-02-22] MEDS: AMOXICILLIN/CLAVULANATE 875 MG TAB PO SCH (20:58)
[2021-02-22] MEDS: METOPROLOL TARTRATE 25 MG TAB PO SCH (20:58)
[2021-02-23] MEDS ORDERED: CALCIUM CARBONATE 500 MG CHEWABLE TAB PO PRN (01:39)
[2021-02-23] MEDS: ENOXAPARIN INJ 120 MG/0.8 ML SYR SQ SCH ×2 (06:24→17:46)
[2021-02-23] MEDS: FLUTICASONE/VILANTEROL 200/25MCG 14 PUFFS/INHALER INH SCH (08:06)
[2021-02-23] MEDS: hydroCHLOROthiazide 25 MG TAB PO SCH (08:07)
[2021-02-23] MEDS: EZETIMIBE 10 MG TABLET PO SCH (08:07)
[2021-02-23] MEDS: METOPROLOL TARTRATE 25 MG TAB PO SCH (08:07)
[2021-02-23] MEDS: AMOXICILLIN/CLAVULANATE 875 MG TAB PO SCH ×2 (08:08→20:09)
[2021-02-23] MEDS: PANTOprazole 40 MG TAB PO SCH (08:08)
[2021-02-23] MEDS: POTASSIUM CHLORIDE CRTAB 20 MEQ TABCR PO SCH (08:08)
[2021-02-23] MEDS: predniSONE 5 MG TAB PO SCH (08:09)
[2021-02-23] MEDS: lisinopril 40 MG TAB PO SCH (08:09)
[2021-02-23 08:10] LABS: Basophils # (auto) 0.04 K/uL (0-0.2); Basophils % (auto) 0.6 %; Eosinophils # (auto) 0.17 K/uL (0-0.5); Eosinophils % (auto) 2.7 %; Hemoglobin 11.9 g/dL (14.0-18.0); Immature Granulocytes # (auto) 0.03 K/uL (0.00-0.02); Immature Granulocytes % (auto) 0.5 %; Lymphocytes % (auto) 23.7 %; Mean Corpuscular Hemoglobin 22.6 pg (25-34); Mean Corpuscular Hgb Conc 30.5 g/dL (32-36); Mean Platelet Volume 9.6 fL (7.4-10.4); Monocytes # (auto) 0.95 K/uL (0.11-0.59); Neutrophils # (auto) 3.65 K/uL (1.4-6.5); Neutrophils % (auto) 57.5 %; Platelet Count 207 K/uL (130-400); RDW Coefficient of Variation 17.4 % (11.5-14.5); Red Blood Count 5.27 M/uL (4.7-6.1); White Blood Count 6.34 K/uL (4.8-10.8)
[2021-02-23 08:37] LABS: BUN Creatinine Ratio 21.5 (10-20); Blood Urea Nitrogen 15 mg/dl (7-18); Calcium 8.9 mg/dl (8.5-10.1); Carbon Dioxide 29 mmol/L (21-32); Chloride 102 mmol/L (98-107); Est GFR (African American) 117.9 ml/min; Est GFR (Non-African American) 101.7 ml/min; Glucose 116 mg/dl (70-99); Potassium 3.1 mmol/L (3.5-5.1); Sodium 137 mmol/L (136-145)
[2021-02-23 08:41] LABS: Hypochromasia Present; Microcytosis Present; Ovalocytes 1+
[2021-02-23 08:42] LABS: Troponin I < 0.015 ng/ml (0-0.045)
--- NOTE | 2021-02-23 11:23 | Hospitalist Progress Note ---
Date of Service February 23, 2021 Assessment & Plan (1) Atrial fibrillation: Plan: (1) Atrial fibrillation: New onset afib. Patient was rate controled on metoprolol 25mg BID, therapeutic dose enoxaparin. TSH low at 0.280 with normal T4, recommend follow with outpt. Lyme labs negative. Troponins negative. LINO less likely contributory, patient regularly uses CPAP. TTE showed EF 55-60% with moderate dilated LA. Cardiology consulted, recommended increasing metoprolol, repleting potassium, follow up 3- 4wks to determine if cardioversion needed. -metoprolol increased to 50mg BID (2) HTN (hypertension): Chronic. Mildly elevated, currently at 113/76 -continue home medications -continue metoprolol (3) Hyperlipidemia: Chronic, continue home medications (4) Rheumatoid arthritis: Chronic, continue home medications (5) GERD (gastroesophageal reflux disease): Continue home medications (6) Sinus infection: Patient on Augmentin since 02/19 for presumed sinus infection. Will complete course x 5 days FENa: [] Code Status: [full] DVT PPX: [enoaparin] PT/OT: [] Case Management: [] Dispo: [] Fariba Grande Do PGY 1, FCM (2) HTN (hypertension): (3) Hyperlipidemia: (4) GERD (gastroesophageal reflux disease): (5) Sinus infection: (6) Rheumatoid arthritis: Admission and Anticipated Discharge Date Admission Date: February 22, 2021 Supervising Physician Co-Signing Physician Notes I personally examined the patient and verified all peters points of history and exam, discussed case, and agree with decision making with Dr Grande. Feeling better but still having a decent amount of fatigue whenever he gets up to walk around. However his fatigue feels better at rest. Discussed A. fib extensively, answered all questions the best my ability. Vitals noted, in general he is awake and alert pleasant no distress. HEENT normocephalic atraumatic mucous membranes moist. Breathing unlabored no accessory muscle use good effort. A. fib however rate control is improving at rest, still get somewhat tachycardic with exertion. New onset atrial fibrillationno immediate need for cardioversion. Rate controlledincrease metoprolol to hopefully obtain better rate control with exertion. Anticoagulationdiscussed, patient agrees. Obstructive sleep apneanotes adherence to his CPAP. Low TSHon multiple occasions, but with normal free [id number] of prior TSH not clear, but in the context of new onset A. fib and feeling lousy, its quite possible his low TSH this time was sick euthyroid syndrome. Would repeat a TSH and free T4 in 3 to 4 weeks on the day he is feeling well. Otherwise as above. Subjective 60yo Male presents to ED with 1wk worsening chest tightness fatigue SOB at rest and on exertion. He has had similar periods of fatigue in past few months, usually resolves after a few hours. He had initially attributed his symptoms to sinus infection. had He was found with afib, started on metoprolol and enoxaparin. He had a CHADVASC score 1 for HTN. Patient was seen at bedside, comfortable, didn't sleep well with a slight headache and diarrhea, has good ap petitie. Telemetry says his rate is around 100, spikes to 180 when he gets up to use bathroom. Patient states he drinks alcohol 1-2 beers 3 times a week, 6-7 cans of soda, no illicit drugs. He lives alone with his dogs, ambulate independently PMH: HTN, HLD, RA, LINO w/regular CPAP use Review of Systems Constitutional: + fatigue; no fever and no chills Respiratory: no cough and no dyspnea Cardiovascular: + palpitations; no chest pain Gastrointestinal: + diarrhea/loose stools; no abdominal pain, no nausea, no vomiting and no constipation Neurologic: + numbness (left arm, from RA) and + headache(s); no dizziness Physical Exam Constitutional: well nourished, + morbidly obese, cooperative and comfortable Respiratory: normal respiratory effort, lungs clear to auscultation no respiratory distress and no cough Auscultation: no rales, no rhonchi and no wheezes Cardiovascular: Rate/Rhythm: + tachycardic and + irregularly irregular Heart Sounds: normal S1 and normal S2; no gallop, no murmur and no cardiac rub Gastrointestinal (Abdomen): normal bowel sounds, soft, nontender, no hepatosplenomegaly Inspection/Auscultation: abdomen not distended Psychiatric: A+Ox3, euthymic affect Results & Data Results & Data ([facility]) Vital Signs (Past 12 Hours) Vital Signs Temp Pulse Pulse Resp BP Pulse Ox 02/23/21 07:52 37.1 C 99 H 16 126/74 96 02/23/21 07:22 98 H 02/23/21 03:06 36.7 C 106 H 18 149/85 H 96 02/23/21 03:03 102 H 19 91 02/23/21 00:54 96 H Laboratory Results 02/23/21 02/23/21 Range/Units 07:44 07:44 WBC 6.34 (4.8-10.8) K/uL RBC 5.27 (4.7-6.1) M/uL Hgb 11.9 L (14.0-18.0) g/dL Hct 39.0 L (42-52) % MCV 74.0 L (80-100) fL MCH 22.6 L (25-34) pg MCHC 30.5 L (32-36) g/dL RDW Std Deviation 47.0 H (36.4-46.3) fL RDW Coeff of Elvia 17.4 H (11.5-14.5) % Plt Count 207 (130-400) K/uL MPV 9.6 (7.4-10.4) fL Immature Gran % (Auto) 0.5 % Neut % (Auto) 57.5 % Lymph % (Auto) 23.7 % [place] % (Auto) 15.0 % Eos % (Auto) 2.7 % Baso % (Auto) 0.6 % Neut # (Auto) 3.65 (1.4-6.5) K/uL Lymph # (Auto) 1.50 (1.2-3.4) K/uL [place] # (Auto) 0.95 H (0.11-0.59) K/uL Eos # (Auto) 0.17 (0-0.5) K/uL Baso # (Auto) 0.04 (0-0.2) K/uL Immature Gran # (Auto) 0.03 H (0.00-0.02) K/uL Hypochromasia Present Microcytosis Present Ovalocytes 1+ Sodium 137 (136-145) mmol/L Potassium 3.1 L (3.5-5.1) mmol/L Chloride 102 (98-107) mmol/L Carbon Dioxide 29 (21-32) mmol/L Anion Gap 6.0 (3-11) BUN 15 (7-18) mg/dl Creatinine 0.69 (0.6-1.4) mg/dl Est Cr Clr Drug Dosing 141.0 ml/min Est GFR ( Amer) 117.9 ml/min Est GFR (Non-Af Amer) 101.7 ml/min BUN/Creatinine Ratio 21.5 H (10-20) Glucose 116 H (70-99) mg/dl Calcium 8.9 (8.5-10.1) mg/dl Troponin I < 0.015 (0-0.045) ng/ml Medications Administered Current Inpatient Medications Acetaminophen (Acetaminophen 325 Mg Tab) 650 mg PO Q4H PRN PRN Reason: pain/fever Stop: 03/24/21 17:20 Hydrocodone Bitart/Acetaminophen (Hydrocodone/Acetamophen 5/325mg Tab) 1 tab PO Q4H PRN PRN Reason: Pain Stop: 03/08/21 17:20 Amoxicillin/Clavulanate Potassium (Amoxicillin/Clavulanate 875 Mg Tab) 1 tab PO BID PETE Stop: 02/24/21 21:01 Last Admin: 02/23/21 08:08 Dose: 1 tab Documented by: Calcium Carbonate (Calcium Carbonate 500 Mg Chewable Tab) 1,500 mg PO Q12H PRN PRN Reason: Indigestion Stop: 03/25/21 01:38 Last Admin: 02/23/21 06:27 Dose: 1,500 mg Documented by: Doxepin HCl (Doxepin Hcl 10 Mg Capsule) 10 mg PO HS PRN PRN Reason: sleep Stop: 03/24/21 17:20 Last Admin: 02/23/21 01:35 Dose: 10 mg Documented by: Ezetimibe (Ezetimibe 10 Mg Tablet) 10 mg PO DAILY PETE Stop: 03/25/21 08:59 Last Admin: 02/23/21 08:07 Dose: 10 mg Documented by: Enoxaparin Sodium (Enoxaparin Inj 120 Mg/0.8 Ml Syr) 120 mg SQ Q12H PETE Stop: 03/24/21 17:29 Last Admin: 02/23/21 17:46 Dose: 120 mg Documented by: Fluticasone/Vilanterol (Fluticasone/Vilanterol 200/25mcg 14 Puffs/Inhaler) 1 puffs INH DAILY PETE Stop: 03/25/21 08:59 Last Admin: 02/23/21 08:06 Dose: 1 puffs Documented by: Hydrochlorothiazide (Hydrochlorothiazide 25 Mg Tab) 50 mg PO DAILY [facility] Stop: 03/25/21 08:59 Last Admin: 02/23/21 08:07 Dose: 50 mg Documented by: Lisinopril (Lisinopril 40 Mg Tab) 40 mg PO DAILY [facility] Stop: 03/25/21 08:59 Last Admin: 02/23/21 08:09 Dose: 40 mg Documented by: Loratadine (Loratadine 10 Mg Tab) 10 mg PO DAILY PRN PRN Reason: allergy symptoms Stop: 03/24/21 17:20 Metoprolol Tartrate (Metoprolol Tartrate 50 Mg Tab) 50 mg PO BID [facility] Stop: 03/25/21 20:59 Miscellaneous (Leflunomide: Order Awaiting Action) 1 ea N/A QS [facility] Stop: 03/25/21 00:00 Last Admin: 02/23/21 15:28 Dose: Not Given Documented by: Ondansetron HCl (Ondansetron Inj 2 Mg/Ml 2 Ml Vial) 4 mg IV Q6H PRN PRN Reason: Nausea Stop: 03/24/21 17:20 Pantoprazole Sodium (Pantoprazole 40 Mg Tab) 40 mg PO DAILY [facility] Stop: 03/25/21 08:59 Last Admin: 02/23/21 08:08 Dose: 40 mg Documented by: Potassium Chloride (Potassium Chloride Crtab 20 Meq Tabcr) 20 meq PO QAM [facility] Stop: 03/25/21 08:59 Last Admin: 02/23/21 08:08 Dose: 20 meq Documented by: Prednisone (Prednisone 5 Mg Tab) 5 mg PO DAILY [facility] Stop: 03/25/21 08:59 Last Admin: 02/23/21 08:09 Dose: 5 mg Documented by: Resident Activity Tracking Resident Involvement: Resident Care Provided Care Provided: Adult [facility] Medicine
--- NOTE | 2021-02-23 12:36 | Cardiology Consultation ---
Date of Consultation February 23, 2021 Assessment & Plan (1) Atrial fibrillation: -symptoms suggests that atrial fibrillation has been present for 1 week. -would increase metoprolol tartrate as ventricular response elevated with physical activity. -would replete potassium and increase his standing daily dose. -convert Lovenox to one of the novel agents. -determine if cardioversion needed after 3-4 weeks of anticoagulation therapy. -I am happy to see the patient in follow-up. (2) HTN (hypertension): -adequate control on current regimen. -mild LVH noted on echocardiogram. (3) Hyperlipidemia: -continue Zetia. History of Present Illness Attending Physician: Yordy Obrien, History of Present Illness Mr. Mendez is a 60-year-old male admitted yesterday with recent onset atrial fibrillation and a rapid ventricular response. This consultation was ordered to assistance cardiac management. The patient was in his usual state of health until approximately 1 week prior to presentation. The patient explains that he felt off and was experiencing exercise intolerance, exertional dyspnea, and a funny feeling across his upper chest. At no time did the patient experience palpitations or exertional angina pectoris. He further denies syncope, presyncope, PND, orthopnea, lower extremity edema, and claudication. The patient presented to the emergency room at the recommendation of his primary care physician. He was found to be in atrial fibrillation with a rapid ventricular response and hospitalization was recommended. The patient does recall a similar episode as described above which occurred approximately 1 year ago. However, that episode resolved within a relatively short period of time (several hours). Currently, patient is resting comfortably in bed without complaints. However, when he gets out of bed to use the bathroom, he does note dyspnea and fatigue. Past medical and surgical history 1. Hypertension 2. Mild LVH 3. Hypercholesterolemia 4. GERD 5. Rheumatoid arthritis 6. Obstructive sleep apnea 7. Lumbar laminectomy 8. Cholecystectomy 9. History of elbow surgery 10. History of shoulder surgery Social history Single, lives alone Retired from [employer]. No tobacco Occasional alcohol Family history Father at 67 from CVA Mother at 75 from CHF Review of systems A 10 point review systems was undertaken and negative except for that described above. Allergies Allergy/AdvReac Type Severity Reaction Status Date / Time amlodipine Allergy Unknown UNKNOWN Verified 01/22/21 15:04 methotrexate Allergy Unknown . Verified 01/22/21 15:04 Home Medications Medication Instructions Recorded Confirmed Type abatacept 125 mg/mL subcutaneous 125 mg SUBCUT WK 10/01/18 02/22/21 History syringe leflunomide 20 mg tablet 20 mg PO DAILY 10/01/18 02/22/21 History loratadine 10 mg tablet 10 mg PO DAILY PRN tab 05/13/19 02/22/21 History prednisone 5 mg tablet 5 mg PO DAILY #30 tab 05/13/19 02/22/21 History celecoxib 200 mg capsule 200 mg PO DAILY 02/05/20 02/22/21 History omeprazole 20 mg capsule,delayed 20 mg PO BID #180 cap 04/28/20 02/22/21 Rx release hydrochlorothiazide 50 mg tablet 50 mg PO DAILY #90 tab 07/15/20 02/22/21 Rx lisinopril 40 mg tablet 40 mg PO DAILY #90 tab 07/22/20 02/22/21 Rx potassium chloride 15 mEq 15 meq PO BID #180 tab 09/30/20 02/22/21 Rx tablet,extended release(part/cryst) (Klor-Con M) acetaminophen 650 mg 650 - 1,300 mg PO DAILY PRN tab 11/26/20 02/22/21 History tablet,extended release (Tylenol Arthritis Pain) cholecalciferol (vitamin D3) 50 50 mcg PO DAILY 11/26/20 02/22/21 History mcg (2,000 unit) capsule cyanocobalamin (vitamin B-12) 1,000 mcg PO DAILY 11/26/20 02/22/21 History 1,000 mcg capsule doxepin 10 mg capsule 10 mg PO HS PRN cap 11/26/20 02/22/21 History Advair Diskus 250 mcg-50 mcg/dose 1 inh INHALATION Q12H #3 inhaler NS 11/29/20 02/22/21 Rx powder for inhalation (fluticasone propion-salmeterol) methylprednisolone 4 mg tablets in See Rx Instructions .ROUTE 01/22/21 02/22/21 Rx a dose pack (Medrol (Tru)) .COMPLEX #21 ea ezetimibe 10 mg tablet 10 mg PO DAILY #90 tab 02/04/21 02/22/21 Rx hydrocodone 5 mg-acetaminophen 325 1 tab PO .COMPLEX PRN #40 tab 02/05/21 02/22/21 Rx mg tablet amoxicillin 875 mg-potassium 1 tab PO BID 02/22/21 02/22/21 History clavulanate 125 mg tablet (Augmentin) Patient History Medical History (Updated 02/22/21 @ 19:40 by Melvina Boudreaux DO) Abscess of scrotum GERD (gastroesophageal reflux disease) HTN (hypertension) Hyperlipidemia Methotrexate adverse reaction Psoriatic arthritis Rheumatoid arthritis Sinusitis Sleep apnea Surgical History History of lumbar laminectomy History of surgery on arm Hx of cholecystectomy Hx of elbow surgery Hx of shoulder surgery Family History Father Cardiac disorder Sister Breast cancer Mother Breast cancer Other Diabetes Hypertension Social History (Updated 01/22/21 @ 15:08 by Concha Dior MA) Smoking Status: Never smoker Second Hand Exposure: No; Do You Dip or Chew Tobacco: No; Tobacco Cessation Education Requested by Patient: No Hx Alcohol Use: Yes Alcohol type: beer Hx Substance Use: No Preferred Language: Urdu Communication Ability: Effective Manager Of Drilling Required: No Beliefs That Will Affect Care: None Current Living Situation: Alone and Other Current Living Situation Comment: at home, independently. with dogs. current occupational status: retired Other Information That Helps Us Care for You: No Feels Safe at Home: Yes Safety Concerns: Feels Safe At This Time Assistive Devices: Contacts and CPAP Physical Exam Physical Exam: In general is well-developed well-nourished white male in no acute distress. HEENT exam is negative. Neck is supple with full carotid upstrokes. There are no carotid bruits. Jugular venous pressure is flat 90. There is no thyromegaly. Cardiovascular exam reveals an irregularly irregular rhythm with distant heart sounds. No obvious murmurs. No S3. Lungs are clear without rales, rhonchi, or wheezes. Abdomen is obese without bruits. Extremities reveal intact radial artery pulses bilaterally. There is no peripheral edema. Results & Data ([facility]) Vital Signs (Past 12 Hours) Vital Signs Temp Pulse Pulse Resp BP Pulse Ox 02/23/21 11:52 37.0 C 100 H 16 129/84 92 02/23/21 07:52 37.1 C 99 H 16 126/74 96 02/23/21 07:22 98 H 02/23/21 03:06 36.7 C 106 H 18 149/85 H 96 02/23/21 03:03 102 H 19 91 02/23/21 00:54 96 H Laboratory Results CBC notes hemoglobin 11.9, hematocrit 39.0, white count 6.34, platelet count 194040. Electrolytes note a sodium of 137, potassium 3.1, chloride 102, bicarb 29, BUN 15, creatinine 0.69, glucose of 116. Magnesium level is 2.1. Calcium level is normal at 8.9. Troponin I levels less than 0.015. TSH is borderline at 0.28. Diagnostic Findings EKG notes atrial fibrillation with a rapid ventricular response. residential monitor notes atrial fibrillation with a ventricular response of approximately 100 beats per minute while at rest. Increases to 180 beats per minute with exercise. Echocardiogram notes normal left ventricular systolic function with ejection fraction 55-60%. There was mild LVH. Left atrium is moderately dilated 5.1 cm in diameter. PG Care Time/CCT Total # of Minutes Spent Total Time Spent with Patient: Total time spent is greater than 50% in coordination of care (as documented) at patient's floor/unit and/or counseling patient: Coding Level of Care Code 51972 Inpt Consult Level 4 Diagnoses Atrial fibrillation I48.91 HTN (hypertension) I10 Hyperlipidemia E78.5
--- NOTE | 2021-02-23 19:03 | Billing Data ---
Date of Service February 23, 2021 Coding Level of Care Code 08581 Subseq Hosp Care Lvl 3
[2021-02-23] MEDS: METOPROLOL TARTRATE 50 MG TAB PO SCH (20:10)
[2021-02-24] MEDS: ENOXAPARIN INJ 120 MG/0.8 ML SYR SQ SCH (05:53)
[2021-02-24] MEDS: FLUTICASONE/VILANTEROL 200/25MCG 14 PUFFS/INHALER INH SCH (07:19)
[2021-02-24] MEDS: POTASSIUM CHLORIDE CRTAB 20 MEQ TABCR PO SCH (07:19)
[2021-02-24] MEDS: EZETIMIBE 10 MG TABLET PO SCH (07:19)
[2021-02-24] MEDS: AMOXICILLIN/CLAVULANATE 875 MG TAB PO SCH (07:19)
[2021-02-24] MEDS: lisinopril 40 MG TAB PO SCH (07:19)
[2021-02-24] MEDS: hydroCHLOROthiazide 25 MG TAB PO SCH (07:20)
[2021-02-24] MEDS: PANTOprazole 40 MG TAB PO SCH (07:20)
[2021-02-24] MEDS: predniSONE 5 MG TAB PO SCH (07:20)
[2021-02-24] MEDS: METOPROLOL TARTRATE 50 MG TAB PO SCH (07:20)
[2021-02-24] MEDS ORDERED: POTASSIUM CHLORIDE 20 MEQ/15 ML UDC PO STA (07:52)
--- NOTE | 2021-02-24 08:14 | Hospitalist Progress Note ---
Date of Service February 24, 2021 Assessment & Plan Admission and Anticipated Discharge Date Admission Date: February 22, 2021 Results & Data Results & Data ([facility]) Vital Signs (Past 12 Hours) Vital Signs Temp Pulse Pulse Resp BP Pulse Ox 02/24/21 07:01 36.8 C 95 H 18 147/92 H 93 02/24/21 03:32 36.8 C 92 H 18 112/72 95 02/24/21 03:17 95 H 16 94 02/24/21 03:04 99 H 02/23/21 23:11 37.1 C 95 H 18 154/84 H 94 02/23/21 22:45 95 H 20 95 Resident Activity Tracking Resident Involvement: Resident Care Provided Care Provided: Adult Hospital Medicine
[2021-02-24] MEDS ORDERED: METOPROLOL TARTRATE 25 MG TAB PO SCH (09:00)
[2021-02-24] MEDS ORDERED: METOPROLOL TARTRATE 25 MG TAB PO STA (09:23)
--- NOTE | 2021-02-24 11:02 | Cardiology Progress Note ---
Date of Service February 24, 2021 Assessment & Plan (1) Atrial fibrillation: Plan: -symptoms suggests that atrial fibrillation has been present for 1 week. -would increase metoprolol tartrate as ventricular response still somewhat elevated. -convert Lovenox to one of the novel agents. -determine if cardioversion needed after 3-4 weeks of anticoagulation therapy. (2) HTN (hypertension): Plan: -adequate control on current regimen. -mild LVH on echocardiogram. (3) Hyperlipidemia: Plan: -continue Zetia. Admission and Anticipated Discharge Date Admission Date: February 22, 2021 Subjective The patient is resting comfortably in bed without complaints of chest pain, dyspnea, palpitations. Was able to ambulate to and from the bathroom without difficulty. Claims to the best he has felt in over a week. Physical Exam Physical Exam: In general is well-developed well-nourished white male in no acute distress. HEENT exam is negative. Neck is supple with full carotid upstrokes. There are no carotid bruits. No JVD. There is no thyromegaly. Cardiovascular exam reveals an irregularly irregular rhythm with distant heart sounds. No obvious murmurs. No S3. Lungs are clear without rales, rhonchi, or wheezes. Abdomen is obese without bruits. Extremities reveal intact radial artery pulses bilaterally. There is no peripheral edema. Results & Data ([facility]) Vital Signs (Past 12 Hours) Vital Signs Temp Pulse Pulse Resp BP Pulse Ox 02/24/21 08:00 99 H 02/24/21 07:01 36.8 C 95 H 18 147/92 H 93 02/24/21 03:32 36.8 C 92 H 18 112/72 95 02/24/21 03:17 95 H 16 94 02/24/21 03:04 99 H 02/23/21 23:11 37.1 C 95 H 18 154/84 H 94 Diagnostic Findings library monitor notes atrial fibrillation with ventricular response approximately 100 beats per minute. Increases 102,140 with physical activity. PG Care Time/CCT Total # of Minutes Spent Total Time Spent with Patient: Total time spent is greater than 50% in coordination of care (as documented) at patient's floor/unit and/or counseling p atient: Coding Level of Care Code 31192 Subseq Hosp Care Lvl 3 Diagnoses Atrial fibrillation I48.91 HTN (hypertension) I10 Hyperlipidemia E78.5
--- NOTE | 2021-02-24 18:00 | Discharge Summary ---
Date of Service February 24, 2021 Admission HPI Per Admitting Provider Vinay Mendez is a pleasant 60yo male with history of HTN, HLP, RA and LINO presenting with one week of feeling "off". He reports occasional chest tightness, decreased exercise tolerance, CRUZ and some mild SOB at rest. Patient did some housework yesterday after which he became SOB and dizzy. He took a nap for 2-3 hours then felt better. He called [facility] with his symptoms and was instructed to come to the ER. Patient denies history of CAD, no prior stents or arrhythmias. He had a stress test 25+ years ago which was unremarkable. Patient has had both Covid vaccines Patient had a few drinks this weekend but did not drink to excess He denies fever, chills, cough, orthopnea, weight gain or edema ER Course: Metoprolol Admission Exam Per Admitting Provider General: patient resting comfortably, NAD, non-toxic in appearance, AA&O x 4 Skin: warm, dry, intact, no rashes or lesions HEENT: NC/AT, PERRL, EOMI, anicteric sclera, conjunctiva without injection, external ear normal to inspection and nontender, nares patent, moist mucus membranes, dentition intact, no oropharyngeal lesions, neck supple, trachea midline, no LAD, no thyromegaly, no JVD Heart: +S1/S2, regular, no m/r/g Lungs: equal air entry bilaterally, no rales/rhonchi/wheezes Abd: +BS, soft, NT/ND, no masses/organomegaly/ascites Ext: warm, 2+ pulses in UE/LE bilaterally, no clubbing/cyanosis or edema Neuro: nonfocal, patient AA&O x 4, speech intact, no facial droop, moving all extremities on command with equal strength 5/5 Principal Diagnosis Atrial Fibrillation Discharge Exam Constitutional well nourished, + morbidly obese, cooperative and comfortable Respiratory normal respiratory effort, lungs clear to auscultation no respiratory distress and no cough Auscultation: no rales, no rhonchi and no wheezes Cardiovascular Rate/Rhythm: + tachycardic and + irregularly irregular Heart Sounds: normal S1 and normal S2; no gallop, no murmur and no cardiac rub Gastrointestinal (Abdomen) normal bowel sounds, soft, nontender, no hepatosplenomegaly Inspection/Auscultation: abdomen not distended Psychiatric A+Ox3, euthymic affect Discharge Data Allergies Allergy/AdvReac Type Severity Reaction Status Date / Time amlodipine Allergy Unknown UNKNOWN Verified 01/22/21 15:04 methotrexate Allergy Unknown . Verified 01/22/21 15:04 Consultations 02/22/21 14:37 Consult Cardiology Routine 02/22/21 14:49 ED Decision to Admit Stat Hospital Course (1) Atrial fibrillation: (1) Atrial fibrillation: New onset afib with CRUZ, fatigue, chest tightness. Lyme labs negative. Troponins negative. LINO less likely contributory, patient regularly uses CPAP. TTE showed EF 55-60% with moderate dilated LA. Patient started on rate control on metoprolol 25mg BID, therapeutic dose enoxaparin. Cardiology consulted, recommended increasing metoprolol, repleting potassium, follow up 3-4wks to determine if cardioversion needed. Metoprolol increased to 75 mg BID, symptoms improved, patient to follow up with PCP to continue to titrate medication. -TSH low at 0.280 with normal T4, recommend follow with outpt. -Patient can resume normal activities as tolerated (2) HTN (hypertension): Chronic. Mildly elevated, last at 115/76. Continue home medication and metoprolol (3) Hyperlipidemia: Chronic, continue home medications (4) Rheumatoid arthritis: Chronic, continue home medications (5) GERD (gastroesophageal reflux disease): Continue home medications (6) Sinus infection: Patient on Augmentin since 02/19 for presumed sinus infection. Will complete course x 5 days Fariba Grande Do PGY 1, FCM (2) HTN (hypertension): (3) Hyperlipidemia: (4) GERD (gastroesophageal reflux disease): (5) Sinus infection: (6) Rheumatoid arthritis: Total Time Total Time Spent Total Time Spent (In Minutes): Please see attending attestation Discharge Plan Discharge Items Patient Disposition: Home - Self-Care Reason For Visit: NEW ONSET AF Discharge Diagnosis: New Onset Atrial Fibrillation Activity: Resume your previous activity Non-emergency contact: Primary Care Provider Call non-emergency contact if: you have any medication questions and your symptoms worsen Follow-up/Referrals: Ken Bricneo III, MD [Primary Care Provider] - 03/01/21 10:30 am (Jennifer Hernandez PA-C) Diet: Regular and Heart Healthy Addtl Attending Provider Instructions: You were admitted to the hospital for new onset atrial fibrillation. Your heart rate was at 100 beats per minute that reached 180 beats per minute while walk ing, which was causing you to feel tired and out of breath. The top part of your heart was quivering, while the bottom of your heart was getting way too many signals to beat, which caused your elevated heart rate. You were treated with metoprolol to slow down your heart rate. When your heart rate is under control, you should be able to resume all your previous activities. You can consider using the Kardia to monitor your pulse at home. After you go home, please follow up with your PCP and your audio/visual manager to continue to fine tune your metoprolol dose. You were prescribed Xarelto, a medication to prevent blood clots including stroke. During atrial fibrillation, due to the quivering of the heart the blood is not moving properly through your heart and may become stagnant. This can put you at risk for blood clots. We discontinued your celecoxib due to possible medication interaction with your Xarelto, the blood thinner. Please discuss with your PCP on whether it is ok to resume that medication. When you are on a blood thinner, you may bleed for longer than usual. Please use 10 minutes of continuous pressure on any cuts to stop bleeding. A discharge summary will be sent to your primary care physician to ensure continuity of care. Please bring this discharge summary with you to your next office appointment so that your provider can review it at that time. Follow-up appointments: Follow up with your PCP within the next week. It is very important that you follow up with them shortly after discharge from the hospital. Follow up with your audio/visual manager within the next two week. It is very important that you follow up with them shortly after discharge from the hospital. Medications: Your medication list has been reviewed and reconciled upon discharge to ensure accuracy and continuity of care. An updated list of all your medications is included with your hospital discharge paperwork. Please review this list closely, and make note of any changes. * We sent a new medication called Metoprolol to your pharmacy. Take metoprolol (75mg) one tablet twice a day. * We sent a new medication called Xarelto to your pharmacy. Take Xarelto (20mg) one tablet daily. Take your medications as instructed; do not skip a dose of your medicines. Make sure all of your doctors know every medicine you are taking (including isgi-wxi-ytqcjla medicines, vitamins, and supplements). Call your primary care provider before taking any new medicines (including vphk-fai-ikeozde medicines, vitamins, and supplements), because some of these may interact with your current medications, or may make your symptoms worse. Tell your primary care provider if you cannot afford your medications. CONTACT YOUR PRIMARY CARE PROVIDER if you experience any of the following: worsening symptoms Difficulty following your treatment plan, or difficulty taking medications CALL 911 OR GO TO THE EMERGENCY DEPARTMENT if you experience any of the following: Sudden, severe abdominal pain or nausea/vomiting Severe chest pain, or chest pain that radiates (moves) to your jaw or arm Sudden, severe shortness of breath or difficulty breathing Thank you for allowing us to participate in your care. Pending Studies at Discharge: No Stand-Alone Forms: My [facility] [employer], Smoking Cessation Medications and DC Order Prescriptions: New metoprolol tartrate 75 mg tablet 75 mg PO BID 30 Days Qty: 60 RF: 3 Xarelto 20 mg tablet 20 mg PO DAILY 30 Days Qty: 30 RF: 3 Continued omeprazole 20 mg capsule,delayed release(DR/EC) 20 mg PO BID Qty: 180 RF: 3 hydrochlorothiazide 50 mg tablet 50 mg PO DAILY Qty: 90 RF: 3 lisinopril 40 mg tablet 40 mg PO DAILY Qty: 90 RF: 3 Klor-Con M15 15 mEq tablet,ER particles/crystals 15 meq PO BID Qty: 180 RF: 3 fluticasone propion-salmeterol [Advair Diskus] 250-50 mcg/dose blister with device 1 inh inhalation Q12H Qty: 3 RF: 3 ezetimibe 10 mg tablet 10 mg PO DAILY Qty: 90 RF: 3 hydrocodone-acetaminophen 5-325 mg tablet 1 tab PO .COMPLEX PRN (Reason: Pain) Qty: 40 RF: 0 cholecalciferol (vitamin D3) 50 mcg (2,000 unit) capsule 50 mcg PO DAILY RF: 0 acetaminophen [Tylenol Arthritis Pain] 650 mg tablet extended release 650 - 1,300 mg PO DAILY PRN (Reason: pain) RF: 0 cyanocobalamin (vitamin B-12) 1,000 mcg capsule 1,000 mcg PO DAILY RF: 0 doxepin 10 mg capsule 10 mg PO HS PRN (Reason: sleep) RF: 0 methylprednisolone [Medrol (Tru)] 4 mg tablets,dose pack See Rx Instructions .Route .COMPLEX Qty: 21 RF: 0 loratadine 10 mg tablet 10 mg PO DAILY PRN (Reason: allergy symptoms) RF: 0 prednisone 5 mg tablet 5 mg PO DAILY Qty: 30 RF: 0 leflunomide 20 mg tablet 20 mg PO DAILY RF: 0 abatacept 125 mg/mL syringe 125 mg subcut WK RF: 0 amoxicillin-pot clavulanate [Augmentin] 875-125 mg tablet 1 tab PO BID RF: 0 Discontinued celecoxib 200 mg capsule 200 mg PO DAILY RF: 0 Discharge Orders: Discharge Order (Routine); Ordered 02/24/21 Ordered By: Fariba Cortez/Other Patient Handouts: Using Blood Thinners (Anticoagulants), ED Atrial Fibrillation Admission Data Admit Date/Time: 02/22/21 14:37 Attending Provider: Yordy Obrien Admit Provider: Melvina Boudreaux Primary Care Provider: Kne Briceno III Other Providers: Max Puga ; Melvina Boudreaux Other Interventions: Discharge Summary Assessment (RN) Last Done: 02/24/21 12:36 Supervising Physician Co-Signing Physician Notes I personally examined the patient and verified all peters points of history and exam, discussed case, and agree with decision making with Dr Grande. Feeling better. Overall much better. At rest no notable fatigue, whenever he is get up and around far less than before. He does note that his heart rate still goes up some. Vitals noted, in general he is awake and alert pleasant no distress. HEENT normocephalic atraumatic mucous membranes moist. Breathing unlabored no accessory muscle use good effort. Rates improving, although still somewhat tachycardic on exertion New onset atrial fibrillationno immediate need for cardioversion. Rate controlled at restcontinue to titrate metoprolol for better rate control with exertion, but in discussion of risks and benefits, patient very comfortable with going home, with ongoing outpatient titration of his medications via his PCP and cardiology. Seems extremely safe given that he was probably tachycardic at much faster rates and this for probably the better part of the week prior to admission, and he will have close/active follow-up. Anticoagulation with Xarelto for nowcoupon given, discussed cost and potential coverage issues, but at least this gets time to be able to better determine what his long-term anticoagulant will be. Discussed safety measures with blood thinners. Obstructive sleep apneanotes adherence to his CPAP. Low TSHon multiple occasions, but with normal free [id number] of prior TSH not clear, but in the context of new onset A. fib and feeling lousy, its quite possible his low TSH this time was sick euthyroid syndrome. Would repeat a TSH and free T4 in 3 to 4 weeks on the day he is feeling well.
--- NOTE | 2021-02-24 19:00 | Billing Data ---
Date of Service February 24, 2021 Coding Level of Care Code D/C DAY MANAGEMENT <30 MINS
== END 2021-02-24 13:51 | disposition home or self-care (01) ==
LOC: ED 09:29 → 2N 14:37 → INTOOBSV 14:37 → SUATTDRO 14:37 → 2N 17:06